=== PATIENT | male | born 1935 | race Caucasian/White ===

== ENCOUNTER 2016-11-16 10:03 | Inpatient (IN) | payer MEDICARE, OTHER ==
[~2016-11-16] VITALS: Ht 170.2 cm; Wt 65.3 kg
[2016-11-16] VITALS (10 sets, daily range): BP systolic 106–163; BP diastolic 56–91; PULSE 104–150; RESP 18–41; TEMP 99.1–99.9; O2SAT 90–98
[~2016-11-16 10:03] MED LIST: ADVA250A INH; ASPI325T10 PO; CALTTAB5 PO; CEFU1TAB43 PO; DUONSOL2 NEB; FORT200S; LIPI40TA PO; MAGN400T PO; PRED1 PO; PRIL20TA2 PO; RAMI5CAP7 PO; SPIRCAP INH; TAMS0.4C67 PO; TOPR25TA2 PO; Z.0.OXYGEN INH
--- NOTE | 2016-11-16 10:13 | PD ---
HPI Chief Complaint: shortness of breath Time Seen by Provider: 10:04 Travel History International Travel<30 days: No Contact w/Intl Traveler<30days: No Traveled to known affect area: No History of Present Illness HPI 81-year-old male complains of shortness of breath. Patient has history of COPD. Patient on home O2 3 L make an cannula. Patient states that he has been taking medication for fungal infection of the lung recently. Patient started having increased shortness of breath since this morning. EMS was called. Patient was given albuterol treatment times one and Solu-Medrol [address] IV [address] the [address] to the ED. Past medical history including abdominal aortic aneurysm repair, atrial fibrillation, anxiety, CAD, dyslipidemia, hypertension, nephrolithiasis. [facility] Past Medical History AAA: Yes (REPAIRED 11/08/2006) Asthma: Yes Atrial Fibrillation: Yes Autoimmune Disease: No Blood Disorders: No Anxiety: No Depression: No Heart Rhythm Problems: No Cancer: No Cardiovascular Problems: No High Cholesterol: Yes (TAKES LIPITOR) Chemotherapy: No Chest Pain: No Congestive Heart Failure: No COPD: Yes Diabetes: No Diminished Hearing: No Endocrine: Yes Gastrointestinal Disorders: Yes GERD: No Genitourinary: No Hepatitis: No Hiatal Hernia: No Hypertension: Yes Immune Disorder: No Implanted Vascular Access Dvce: Yes Kidney Stones: Yes (1979) Musculoskeletal: No Neurologic: No Psychiatric: No Reproductive: No Respiratory: Yes Myocardial Infarction: No Radiation Therapy: No Renal Failure: No Sleep Apnea: No Thyroid Disease: No Ulcer: No Past Surgical History Abdominal Surgery: Yes (AAA) AICD: No Appendectomy: No Arteriovenous Shunt: No Body Medical Devices: AORTIC STENT FOR ANEURYSM Cardiac Surgery: Yes (AAA STENT 2006) Cholecystectomy: No Ear Surgery: No Endocrine Surgery: Yes (THYROGLOSYL REMOVED) Eye Surgery: Yes Genitourinary Surgery: No Gynecologic Surgery: No Insulin Pump: No Joint Replacement: No Oral Surgery: Yes (TEETH REMOVED) Pacemaker: No Thoracic Surgery: No Other Surgery: Yes (RIGHT VITRECTOMY 1997) Social History Alcohol Use: Yes (WINE OCCASIONALLY) Tobacco Use: No Substance Use: No Allergies-Medications (Allergen,Severity, Reaction): Coded Allergies: Avelox (Verified Allergy, Severe, 08/25/14) Cipro (Verified Allergy, Severe, 08/25/14) Latex (Verified Allergy, Severe, 08/25/14) Levaquin (Verified Allergy, Severe, 08/25/14) Lortab (Verified Allergy, Severe, Hallucinations, 11/16/16) Xanax (Verified Allergy, Severe, Hallucinations, 11/16/16) *MDRO Multi-Drug Resistant Organism (Verified Allergy, Unknown, 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 Reported Meds & Prescriptions Reported Meds & Active Scripts Active Ceftin 500 Mg Tab (Cefuroxime Axetil) 500 Mg Tab 500 Mg PO Q12 Reported Oxygen (O2) (Miscellaneous Medication) Inha 3 L INH Deltasone (Prednisone) 1 Mg Tab 3 Mg PO DAILY Advair Diskus 250/50 (Salmeterol Xinafoate/Fluticasone) 250 Mcg/50 Mcg Inhp 1 Puff INH BID Aspirin Ec 325 mg (Aspirin) 325 Mg Tab 325 Mg PO DAILY Flomax (Tamsulosin HCl) 0.4 Mg Cap 0.4 Mg PO DAILY Fortical (Calcitonin [place]) 200 Mg/Act Spr 200 Mg NA DAILY Resp: Albuterol 2.5 Mg/Ipratropium 0.5 Mg (Albuterol/Ipratropium) 1 Amp Nebu 1 Amp NEB QIDPRN Altace (Ramipril) 5 Mg Cap 5 Mg PO DAILY Caltrate 600 (Calcium Carbonate) Tab 1 Tab PO Spiriva Handihaler (Tiotropium [place]) 18 Mcg Cap 1 Dose INH DAILY DO NOT SWALLOW CAPSULES Mag-Ox 400 (Magnesium Oxide) 400 Mg Tab 400 Mg PO QID Prilosec Otc (Omeprazole Magnesium) 20 Mg Tab 20 Mg PO DAILY Lipitor (Atorvastatin Calcium) 40 Mg Tab 40 Mg PO DAILY Toprol Xl (Metoprolol Succinate) 25 Mg Tabcr 25 Mg PO D Review of Systems General / Constitutional: No: Fever Eyes: No: Visual changes HENT: No: Headaches Cardiovascular: No: Chest Pain or Discomfort Respiratory: Positive: Shortness of Breath Gastrointestinal: No: Abdominal Pain Genitourinary: No: Dysuria Musculoskeletal: No: Pain Skin: No Rash Neurologic: No: Weakness Psychiatric: No: Depression Endocrine: No: Polydipsia Hematologic/Lymphatic: No: Easy Bruising Physical Exam Narrative GENERAL: Well-nourished, well-developed patient. SKIN: Warm and dry. HEAD: Normocephalic. EYES: No scleral icterus. No injection or drainage. NECK: Supple, trachea midline. No JVD or lymphadenopathy. CARDIOVASCULAR: Tachycardia rate and rhythm without murmurs, gallops, or rubs. RESPIRATORY: Patient had decreased breath sounds bilaterally with expiratory wheezes. Few rhonchi at the bases. GASTROINTESTINAL: Abdomen soft, non-tender, nondistended. MUSCULOSKELETAL: No cyanosis, or edema. BACK: Nontender without obvious deformity. No CVA tenderness. Neurologic exam normal. Data Data Last Documented VS Vital Signs Date Time Temp Pulse Resp B/P Pulse Ox O2 Delivery O2 Flow Rate FiO2 11/16/16 10:46 98 50 11/16/16 10:20 BiPAP 11/16/16 10:13 91 30 11/16/16 10:05 99.9 163/91 Orders Complete Blood Count With Diff (11/16/16 10:04) Comprehensive Metabolic Panel (11/16/16 10:04) B-Type Natriuretic Peptide (11/16/16 10:04) Act Partial Throm Time (Ptt) (11/16/16 10:04) Prothrombin Time / Inr (Pt) (11/16/16 10:04) Ckmb (Isoenzyme) Profile (11/16/16 10:04) Troponin I (11/16/16 10:04) Arterial Blood Gas (Abg) (11/16/16 10:04) Urinalysis - C+S If Indicated (11/16/16 10:04) Influenzae A/B Antigen (11/16/16 10:04) Blood Culture (11/16/16 10:04) Iv Access Insert/Monitor (11/16/16 10:04) Electrocardiogram (11/16/16 10:04) Ecg Monitoring (11/16/16 10:04) Oximetry (11/16/16 10:04) Chest, Single Ap (11/16/16 10:04) Albuterol-Ipratropium Neb (Duoneb Neb) (11/16/16 10:15) Lactic Acid (11/16/16 10:04) Labs Laboratory Tests Test 11/16/16 10:25 White Blood Count 13.7 TH/MM3 Red Blood Count 4.29 MIL/MM3 Hemoglobin 11.8 GM/DL Hematocrit 36.3 % Mean Corpuscular Volume 84.6 FL Mean Corpuscular Hemoglobin 27.4 PG Mean Corpuscular Hemoglobin 32.4 % Concent Red Cell Distribution Width 16.3 % Platelet Count 231 TH/MM3 Mean Platelet Volume 8.0 FL Neutrophils (%) (Auto) 82.5 % Lymphocytes (%) (Auto) 2.8 % Monocytes (%) (Auto) 13.0 % Eosinophils (%) (Auto) 1.2 % Basophils (%) (Auto) 0.5 % Neutrophils # (Auto) 11.3 TH/MM3 Lymphocytes # (Auto) 0.4 TH/MM3 Monocytes # (Auto) 1.8 TH/MM3 Eosinophils # (Auto) 0.2 TH/MM3 Basophils # (Auto) 0.1 TH/MM3 CBC Comment DIFF FINAL Differential Comment Prothrombin Time 11.1 SEC Prothromb Time International 1.0 RATIO Ratio Activated Partial 23.0 SEC Thromboplast Time Sodium Level 137 MEQ/L Potassium Level 4.2 MEQ/L Chloride Level 101 MEQ/L Carbon Dioxide Level 27.9 MEQ/L Anion Gap 8 MEQ/L Blood Urea Nitrogen 19 MG/DL Creatinine 1.05 MG/DL Estimat Glomerular Filtration 68 ML/MIN Rate Random Glucose 172 MG/DL Lactic Acid Level 2.2 mmol/L Calcium Level 8.5 MG/DL Total Bilirubin 0.4 MG/DL Aspartate Amino Transf 23 U/L (AST/SGOT) Alanine Aminotransferase 22 U/L (ALT/SGPT) Alkaline Phosphatase 55 U/L Total Creatine Kinase 99 U/L Troponin I 0.02 NG/ML B-Type Natriuretic Peptide 33 PG/ML Total Protein 6.9 GM/DL Albumin 3.6 GM/DL MDM Medical Decision Making Medical Screen Exam Complete: Yes Emergency Medical Condition: Yes Medical Record Reviewed: Yes Interpretation(s) Last Impressions Chest X-Ray 11/16/16 1004 Signed Impressions: Service Date/Time: Wednesday, November 16, 2016 10:32 - CONCLUSION: 1. Stable chest x-ray with background lung changes suggestive of obstructive airways disease. 2. Stable atelectasis versus consolidation in the left lower lobe. Ketan Horta MD 11:47 AM. CBC WBC 13.7. Hemoglobin 11.8 hematocrit 36.3. 82 neutrophil. CMP within normal limit. BUN 19. Glucose 172. Lactic acid 2.2. BNP 33. Differential Diagnosis Differential diagnosis including acute exacerbation COPD, bronchitis, pneumonia , PE, pneumothorax. Narrative Course 81-year-old male with shortness of breath. History of COPD. Patient's tachypneic, tachycardic, with decreased breath sounds bilaterally and wheezing. Albuterol Atrovent unit dose treatment 3. Patient was given Solu-Medrol IV by EMS. BiPAP applied. Diagnosis Primary Impression: COPD with acute exacerbation Additional Impression: Respiratory failure Qualified Code: J96.01 - Acute respiratory failure with hypoxia Francisco Rivera MD Nov 16, 2016 10:13
[2016-11-16] MEDS: RESP: ALBUTEROL 2.5 MG/IPRATROPIUM 0.5 MG NEB (SCH) INH ×2 (10:15→10:34)
[2016-11-16 10:43] LABS: AUTOMATED NEUTROPHIL # 11.3 TH/MM3 (1.8-7.7); BASOPHIL # 0.1 TH/MM3 (0-0.2); BASOPHIL % 0.5 % (0.0-2.0); EOSINOPHIL # 0.2 TH/MM3 (0-0.4); EOSINOPHIL % 1.2 % (0.0-4.0); HEMATOCRIT 36.3 % (39.0-51.0); HEMO FLAGS DIFF FINAL; LYMPH % 2.8 % (9.0-44.0); LYMPHOCYTE # 0.4 TH/MM3 (1.0-4.8); MEAN CELL VOLUME 84.6 FL (80.0-100.0); MEAN CORPUSCULAR HEMOGLOBIN 27.4 PG (27.0-34.0); MEAN CORPUSCULAR HGB CONC 32.4 % (32.0-36.0); NEUT % 82.5 % (16.0-70.0); PLATELET COUNT 231 TH/MM3 (150-450); RED BLOOD COUNT 4.29 MIL/MM3 (4.50-5.90); RED CELL DISTRIBUTION WIDTH 16.3 % (11.6-17.2); WHITE BLOOD COUNT 13.7 TH/MM3 (4.0-11.0)
[2016-11-16 10:52] LABS: PROTHROMBIN TIME - PATIENT 11.1 SEC (9.8-11.6)
[2016-11-16 10:58] LABS: ALT (GPT) 22 U/L (12-78); ANION GAP 8 MEQ/L (5-15); AST (GOT) 23 U/L (15-37); BICARBONATE 27.9 MEQ/L (21.0-32.0); BLOOD UREA NITROGEN 19 MG/DL (7-18); CHLORIDE 101 MEQ/L (98-107); GLOMERULAR FILTRATION RATE 68 ML/MIN (>89); POTASSIUM 4.2 MEQ/L (3.5-5.1); SODIUM (NA) 137 MEQ/L (136-145)
[2016-11-16 11:02] LABS: ALKALINE PHOSPHATASE 55 U/L (45-117); TOTAL BILIRUBIN ADULT 0.4 MG/DL (0.2-1.0)
[2016-11-16 11:05] LABS: CREATINE KINASE 99 U/L (39-308)
--- NOTE | 2016-11-16 11:13 | RADRPT ---
EXAM DATE/TIME: 11/16/2016 10:32 [place] COMPARISON: CT PULMONARY ANGIOGRAM, August 25, 2014, 22:04. CHEST SINGLE AP, August 25, 2014, 18:23. INDICATIONS : Very short of breath MEDICAL HISTORY : Hypertension. Chronic obstructive pulmonary disease. SURGICAL HISTORY : None. ENCOUNTER: Initial ACUITY: 1 day PAIN SCORE: Non-responsive. LOCATION: Bilateral chest FINDINGS: Portable AP views of the chest demonstrate normal-sized cardiac silhouette with calcification of the aorta. There is a stable calcified granuloma in the left midlung zone measuring approximately 16 mm. There is mild consolidation in the retrocardiac region. No pneumothorax is visualized. Lungs remain h yperinflated. CONCLUSION: 1. Stable chest x-ray with background lung changes suggestive of obstructive airways disease. 2. Stable atelectasis versus consolidation in the left lower lobe. Ketan Horta MD on November 16, 2016 at 11:04 Board Certified Radiologist. This report was verified electronically.
[2016-11-16] MEDS ORDERED: CEFEPIME INJ 1,000 MG in SODIUM CHLORIDE 0.9% INJ 100 ML IV ONE (12:00)
[2016-11-16] MEDS ORDERED: AZITHROMYCIN INJ 500 MG in SODIUM CHLOR 0.9% 250 ML INJ 250 ML IV ONE (12:00)
[2016-11-16] MEDS ORDERED: SODIUM CHLORIDE 0.9% FLUSH 5 ML FLUSH IVF PRN (12:15)
[2016-11-16] MEDS ORDERED: ONDANSETRON HCL 4 MG/2 ML VIAL IV PRN (12:15)
--- NOTE | 2016-11-16 12:53 | HHI.HP ---
History of Present Illness Primary Care Physician Shun Vyas MD Admission Diagnosis acute exacerbation COPD. Hypoxemia. Diagnoses: (1) Respiratory failure (2) COPD with acute exacerbation (3) Hypomagnesemia History of Present Illness 81 y CM. BROUGHT IN WITH FOR SEVER SOB AND CHEUNG. PT RECENTLY ON HOME ABX. FOLLOWS WITH DR BAILON. I WAS CALLED BY DR BARRERA FOR ADMISSION. PT SEEN IN ER A POD WITH AND BROTHER. PLACED ON BIPAP, GIVEN IV ABX AND IV STEROIDS. PT SEVERELY TACHYPNEIC AND C/O COUGH AND SPUTUM. AUDIBLE BEDSIDE RONCHI. Sepsis Criteria SIRS Criteria (2 or more): Heart rate over 90, RR > 20 or PaCO2 < 32, WBC > 87502, < 4000 or > 10% bands Sepsis Criteria (SIRS+source): Infect source susp/known Severe Sepsis (+one): Lactate >2 Criteria Outcome: Meets severe sepsis criteria Review of Systems ROS Limitations: Clinical Condition, Altered Mental Status, Hearing Impaired, Poor Historian Past Family Social History Allergies: Coded Allergies: Avelox (Verified Allergy, Severe, 08/25/14) Cipro (Verified Allergy, Severe, 08/25/14) Latex (Verified Allergy, Severe, 08/25/14) Levaquin (Verified Allergy, Severe, 08/25/14) Lortab (Verified Allergy, Severe, Hallucinations, 11/16/16) Xanax (Verified Allergy, Severe, Hallucinations, 11/16/16) *MDRO Multi-Drug Resistant Organism (Verified Allergy, Unknown, 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 Past Medical History COPD HTN AAA Past Surgical History NC Reported Medications Current Medications Medications (Trade) Dose Ordered Sig/Mary Route Start Time Stop Time Status Last Admin (Zithromax Inj/ NS 250 ml Inj) 250 ml @ 250 mls/hr ONCE ONCE IV 11/16/16 12:00 11/16/16 12:59 (Zofran Inj) 4 mg Q6H PRN IV 11/16/16 12:15 (Tylenol) 650 mg Q4H PRN PO 11/16/16 12:15 (NS Flush) 2 ml BID IVF 11/16/16 21:00 (NS Flush) 2 ml UNSCH PRN IVF 11/16/16 12:15 Family History NC Social History NO E/T/D Physical Exam Vital Signs Vital Signs Date Time Temp Pulse Resp B/P Pulse Ox O2 Delivery O2 Flow Rate FiO2 11/16/16 10:46 98 50 11/16/16 10:20 96 BiPAP 50 11/16/16 10:13 91 30 95 BiPAP 50 11/16/16 10:05 99.9 150 18 163/91 90 Physical Exam GENERAL: chronically ill appearing, tachypneic SKIN: No rashes, ecchymoses or lesions. Cool and dry. HEAD: Atraumatic. Normocephalic. No temporal or scalp tenderness. EYES: Pupils equal round and reactive. Extraocular motions intact. No scleral icterus. No injection or drainage. ENT: Nose without bleeding, purulent drainage or septal hematoma. Throat without erythema, tonsillar hypertrophy or exudate. Uvula midline. Airway patent. NECK: Trachea midline. No JVD or lymphadenopathy. Supple, nontender, no meningeal signs. CARDIOVASCULAR: Regular rate and rhythm without murmurs, gallops, or rubs. RESPIRATORY: distant BS'S, harsh cough, b ronchi to apices GASTROINTESTINAL: Abdomen soft, non-tender, nondistended. No hepato-splenomegaly , or palpable masses. No guarding. MUSCULOSKELETAL: Extremities without clubbing, cyanosis, or edema. No joint tenderness, effusion, or edema noted. No calf tenderness. Negative Homans sign bilaterally. NEUROLOGICAL: Awake and alert. Cranial nerves II through XII intact. Motor and sensory grossly within normal limits. 2out of 5 muscle strength in all muscle groups. Normal speech. Laboratory Laboratory Tests Test 11/16/16 10:25 White Blood Count 13.7 Red Blood Count 4.29 Hemoglobin 11.8 Hematocrit 36.3 Mean Corpuscular Volume 84.6 Mean Corpuscular Hemoglobin 27.4 Mean Corpuscular Hemoglobin 32.4 Concent Red Cell Distribution Width 16.3 Platelet Count 231 Mean Platelet Volume 8.0 Neutrophils (%) (Auto) 82.5 Lymphocytes (%) (Auto) 2.8 Monocytes (%) (Auto) 13.0 Eosinophils (%) (Auto) 1.2 Basophils (%) (Auto) 0.5 Neutrophils # (Auto) 11.3 Lymphocytes # (Auto) 0.4 Monocytes # (Auto) 1.8 Eosinophils # (Auto) 0.2 Basophils # (Auto) 0.1 CBC Comment DIFF FINAL Differential Comment Prothrombin Time 11.1 Prothromb Time International 1.0 Ratio Activated Partial 23.0 Thromboplast Time Sodium Level 137 Potassium Level 4.2 Chloride Level 101 Carbon Dioxide Level 27.9 Anion Gap 8 Blood Urea Nitrogen 19 Creatinine 1.05 Estimat Glomerular Filtration 68 Rate Random Glucose 172 Lactic Acid Level 2.2 Calcium Level 8.5 Total Bilirubin 0.4 Aspartate Amino Transf 23 (AST/SGOT) Alanine Aminotransferase 22 (ALT/SGPT) Alkaline Phosphatase 55 Total Creatine Kinase 99 Troponin I 0.02 B-Type Natriuretic Peptide 33 Total Protein 6.9 Albumin 3.6 Date/Time Procedure Status Source Growth 11/16/16 10:50 Influenza Types A,B Antigen (ABBIE) [place] Batch Nasal Washing Pending 11/16/16 10:35 Aerobic Blood Culture Received Blood Peripheral Pending 11/16/16 10:35 Anaerobic Blood Culture Received Blood Peripheral Pending Result Diagram: 11/16/16 1025 11/16/16 1025 Assessment and Plan Assessment and Plan RESPIRATORY FAILURE SEPSIS HCAP COPD EXAC BRONCHIECTASIS HTN AFIB PLAN: IV ABX IV STEROIDS HEPARIN BID DUONEBS IV PROTONIX DR BAILON CONSULT ICU ADMIT FOR THE ABOVE DX AND PLAN. EXPECT 3 D INPT STAY. PT WOULD FROM THE ABOVE W/O INPT ADMIT. DC HOME EXPECTED. Problem Qualifiers (1) Respiratory failure: Qualified Code: J96.01 - Acute respiratory failure with hypoxia Estiven Toth MD Nov 16, 2016 12:53
[2016-11-16] MEDS ORDERED: NALOXONE HCL 0.4 MG/ML AMP IV PRN (13:00)
[2016-11-16] MEDS ORDERED: ONDANSETRON HCL 4 MG/2 ML VIAL IVP PRN (13:00)
[2016-11-16] MEDS ORDERED: MAGNESIUM HYDROXIDE SUSP 30 ML CUP PO PRN (13:00)
[2016-11-16] MEDS ORDERED: ACETAMINOPHEN 325 MG TAB PO PRN (13:00)
[2016-11-16] MEDS: DOCUSATE SODIUM 100 MG CAP PO SCH (13:00)
[2016-11-16] MEDS ORDERED: SODIUM CHLORIDE 0.9% FLUSH 5 ML FLUSH FLUSH PRN (13:00)
[2016-11-16] MEDS ORDERED: cloNIDine HCL 0.1 MG TAB PO PRN (13:00)
[2016-11-16 13:22] LABS: BLOOD GAS BASE EXCESS 1.7 mmol/L (-2-2); BLOOD GAS CARBOXYHEMOGLOBIN 1.7 % (0-4); BLOOD GAS HCO3 26 mmol/L (22-26); BLOOD GAS O2 HGB SATURATION 95 % (90-100); BLOOD GAS OXYGEN CONTENT 16.3 Vol % (12.0-20.0); BLOOD GAS PCO2 43 mmHg (38-42); BLOOD GAS PO2 127 mmHG (61-120); CRITICAL VALUE NO; DRAW SITE LT RADIAL; FIO2 50 %; NUMBER OF ARTERIAL PUNCTURES 1; OXYGEN DEVICE BiPAP; STAT YES; TEMP CORR TO 98.6; ULNAR PULSE Y; VENT SETTINGS IPAP 10 EPAP5
[2016-11-16] MEDS ORDERED: cefTRIAXone INJ 1,000 MG in SODIUM CHLORIDE 0.9% INJ 100 ML IV SCH (15:00)
[2016-11-16] MEDS: SODIUM CHLOR 0.9% 1000 ML INJ 1,000 ML IV SCH (15:56)
[2016-11-16] MEDS: HEPARIN SODIUM - SQ 10,000 UNITS/ML VIAL SQ SCH (15:57)
[2016-11-16] MEDS: PANTOPRAZOLE SODIUM 40 MG VIAL IV PUSH SCH (15:57)
[2016-11-16] MEDS: RESP: ALBUTEROL 2.5 MG/IPRATROPIUM 0.5 MG NEB (SCH) NEB ×2 (17:18→19:52)
[2016-11-16] MEDS: methylPREDNISolone SOD SUCC 125 MG/2 ML VIAL IV PUSH SCH (17:25)
[2016-11-16] MEDS ORDERED: CHLORHEXIDINE GLUCONATE 2 % 1 PACK (2 CLOTHS)(extra cloths) TOP PRN (18:00)
[2016-11-16 18:24] LABS: BLOOD, URINE NEG (NEG); COMMENT (UR) CULT NOT INDICATED; CULTURE IF INDICATED CULT NOT INDICATED; GLUCOSE,URINE NEG (NEG); KETONE, URINE NEG (NEG); MUCUS URINE FEW /lpf (OCC); NITRITE,URINE NEG (NEG); PH, URINE 5.5 (5.0-8.5); URINE COLOR YELLOW (YELLW/STRAW)
[2016-11-16] MEDS: SODIUM CHLORIDE 0.9% FLUSH 5 ML FLUSH FLUSH SCH (19:39)
[2016-11-16] MEDS ORDERED: SODIUM CHLORIDE 0.9% FLUSH 5 ML FLUSH IVF SCH (21:00)
[2016-11-17] VITALS (15 sets, daily range): BP systolic 110–127; BP diastolic 56–70; PULSE 85–114; RESP 14–33; TEMP 98–98.9; O2SAT 93–99
[2016-11-17] MEDS: DOCUSATE SODIUM 100 MG CAP PO SCH ×2 (00:46→12:41)
[2016-11-17] MEDS: HEPARIN SODIUM - SQ 10,000 UNITS/ML VIAL SQ SCH ×2 (00:46→12:43)
[2016-11-17] MEDS: methylPREDNISolone SOD SUCC 125 MG/2 ML VIAL IV PUSH SCH ×4 (00:46→17:12)
[2016-11-17] MEDS: CHLORHEXIDINE GLUCONATE 2 % 1 PACK (2 CLOTHS)(taper/protocol) TOP SCH (04:00)
[2016-11-17 06:14] LABS: AUTOMATED NEUTROPHIL # 13.2 TH/MM3 (1.8-7.7); HEMATOCRIT 32.6 % (39.0-51.0); HEMO FLAGS DIFF FINAL; LYMPH % 1.6 % (9.0-44.0); LYMPHOCYTE # 0.2 TH/MM3 (1.0-4.8); MEAN CORPUSCULAR HEMOGLOBIN 27.6 PG (27.0-34.0); MEAN CORPUSCULAR HGB CONC 32.9 % (32.0-36.0); MONO % 2.9 % (0.0-8.0); NEUT % 95.5 % (16.0-70.0); PLATELET COUNT 194 TH/MM3 (150-450); RED BLOOD COUNT 3.88 MIL/MM3 (4.50-5.90); RED CELL DISTRIBUTION WIDTH 16.3 % (11.6-17.2); WHITE BLOOD COUNT 13.8 TH/MM3 (4.0-11.0)
[2016-11-17 06:44] LABS: BICARBONATE 24.8 MEQ/L (21.0-32.0); POTASSIUM 4.1 MEQ/L (3.5-5.1)
[2016-11-17] MEDS: SODIUM CHLORIDE 0.9% FLUSH 5 ML FLUSH FLUSH SCH ×2 (09:00→20:06)
[2016-11-17] MEDS ORDERED: OMEPRAZOLE MAGNESIUM 20 MG PO SCH (09:00)
[2016-11-17] MEDS: RAMIPRIL 5 MG CAP PO SCH (09:00)
[2016-11-17] MEDS: TAMSULOSIN HCL 0.4 MG CAP PO SCH (09:00)
[2016-11-17] MEDS: METOPROLOL SUCCINATE 25 MG EXTENDED RELEASE TAB PO SCH (09:00)
[2016-11-17] MEDS: RESP: ALBUTEROL 2.5 MG/IPRATROPIUM 0.5 MG NEB (SCH) NEB ×4 (10:31→19:28)
[2016-11-17] MEDS ORDERED: Vancomycin Consult Pharmacy 1 EA OTHER SCH (11:00)
[2016-11-17] MEDS ORDERED: PIPERACIL-TAZO 4.5 GM PREMIX 100 ML IV SCH (11:00)
[2016-11-17] MEDS ORDERED: VANCOMYCIN INJ 1,000 MG in SODIUM CHLOR 0.9% 250 ML INJ 250 ML IV SCH (11:00)
[2016-11-17] MEDS ORDERED: CEFEPIME INJ 1,000 MG in SODIUM CHLORIDE 0.9% INJ 100 ML IV SCH (11:15)
--- NOTE | 2016-11-17 11:22 | HHI.PR ---
Subjective Remarks fu sepsis, copd exacerbation Patient denies cp - states sob still somewhat labored off bipap no fevers still coughing seems tachypneic Objective Vitals Vital Signs Date Time Temp Pulse Resp B/P Pulse Ox O2 Delivery O2 Flow Rate FiO2 11/17/16 10:31 93 Nasal Cannula 4.00 11/17/16 10:00 101 11/17/16 08:00 103 11/17/16 08:00 98.8 103 14 127/66 95 11/17/16 06:00 106 11/17/16 04:00 98.1 85 26 120/56 96 11/17/16 04:00 85 11/17/16 02:00 93 11/17/16 00:00 98.5 92 28 117/66 99 11/17/16 00:00 92 11/16/16 22:00 104 11/16/16 20:00 98 BiPAP 50 11/16/16 20:00 99.1 109 36 137/64 98 11/16/16 20:00 109 11/16/16 19:58 98 50 11/16/16 18:00 123 11/16/16 17:18 95 Nasal Cannula 3.00 11/16/16 16:00 113 11/16/16 16:00 99.6 113 41 106/56 95 11/16/16 14:00 122 18 114/61 95 Nasal Cannula 6 I/O 11/16/16 11/16/16 11/16/16 11/17/16 11/17/16 11/17/16 07:00 15:00 23:00 07:00 15:00 23:00 Intake Total 617 ml 328 ml Output Total 250 ml 250 ml Balance 367 ml 78 ml Intake Oral 120 ml 120 ml IV Total 497 ml 208 ml Output Urine Total 250 ml 250 ml # Voids 0 # Bowel Movements 0 0 Result Diagram: 11/17/16 0555 11/17/16 0555 Imaging Last Impressions Chest X-Ray 11/16/16 1004 Signed Impressions: Service Date/Time: Wednesday, November 16, 2016 10:32 - CONCLUSION: 1. Stable chest x-ray with background lung changes suggestive of obstructive airways disease. 2. Stable atelectasis versus consolidation in the left lower lobe. Ketan Horta MD Objective Remarks GENERAL: chronically ill appearing, tachypneic SKIN: No rashes, ecchymoses or lesions. Cool and dry. HEAD: Atraumatic. Normocephalic. No temporal or scalp tenderness. EYES: Pupils equal round and reactive. Extraocular motions intact. No scleral icterus. No injection or drainage. ENT: Nose without bleeding, purulent drainage or septal hematoma. Throat without erythema, tonsillar hypertrophy or exudate. Uvula midline. Airway patent. NECK: Trachea midline. No JVD or lymphadenopathy. Supple, nontender, no meningeal signs. CARDIOVASCULAR: Regular rate and rhythm without murmurs, gallops, or rubs. RESPIRATORY: distant BS'S, harsh cough, b ronchi to apices GASTROINTESTINAL: Abdomen soft, non-tender, nondistended. No hepato-splenomegaly , or palpable masses. No guarding. MUSCULOSKELETAL: Extremities without clubbing, cyanosis, or edema. No joint tenderness, effusion, or edema noted. No calf tenderness. Negative Homans sign bilaterally. NEUROLOGICAL: Awake and alert. Cranial nerves II through XII intact. Motor and sensory grossly within normal limits. 2out of 5 muscle strength in all muscle groups. Normal speech. Medications and IVs Current Medications Medications (Trade) Dose Ordered Sig/Mary Route Start Time Stop Time Status Last Admin (Tylenol) 650 mg Q4H PRN PO 11/16/16 12:15 (Toprol Xl) 25 mg DAILY PO 11/17/16 09:00 11/17/16 09:00 (Altace) 5 mg DAILY PO 11/17/16 09:00 11/17/16 09:00 Tamsulosin HCl 0.4 mg 0.4 mg DAILY PO 11/17/16 09:00 11/17/16 09:00 (NS 1000 ml Inj) 1,000 ml @ 30 mls/hr Q24H IV 11/16/16 12:56 11/16/16 15:56 (NS Flush) 2 ml UNSCH PRN FLUSH 11/16/16 13:00 (NS Flush) 2 ml BID FLUSH 11/16/16 21:00 11/17/16 09:00 (Zofran Inj) 4 mg Q6H PRN IVP 11/16/16 13:00 (Colace) 100 mg Q12H PO 11/16/16 13:00 11/17/16 00:46 (Milk Of Magnesia Liq) 30 ml Q12H PRN PO 11/16/16 13:00 (Heparin Inj) 5,000 units Q12H SQ 11/16/16 14:00 11/17/16 00:46 Naloxone HCl 0.4 mg 0.4 mg UNSCH PRN IV 11/16/16 13:00 (Zithromax Inj/ NS 250 ml Inj) 250 ml @ 250 mls/hr Q24H IV 11/17/16 14:00 (Catapres) 0.1 mg Q6H PRN PO 11/16/16 13:00 Methylprednisolone Sodium Succinate 120 mg 120 mg Q6HR IV PUSH 11/16/16 18:00 11/17/16 05:22 (Rocephin Inj/NS Inj) 100 ml @ 200 mls/hr Q24H IV 11/16/16 15:00 11/16/16 15:58 (Protonix Inj) 40 mg Q24H IV PUSH 11/16/16 14:00 11/16/16 15:57 Miscellaneous Information Patient in critical care unit? Ass... [id number] XX 11/16/16 18:00 11/16/16 18:00 (Chlorhexidine 2% Cloth) 3 pack DAILY@04 TOP 11/17/16 04:00 11/21/16 04:01 11/17/16 04:00 (Chlorhexidine 2% Cloth) 3 pack UNSCH PRN TOP 11/16/16 18:00 11/21/16 17:53 Urinary Catheter: No Vascular Central Line Catheter: No A/P Problem List: (1) Sepsis ICD Code: A41.9 Status: Acute Plan: Due to COPD exacerbation and pneumonia. Patient admitted to the intensive care unit Blood cultures showing gram-positive cocci Sputum culture pending but sputum Gram stain shows gram-positive cocci in pairs. Continue IV Rocephin and Azithromycin Ordering repeat blood cultures Sepsis at present, patient still with leukocytosis, and sinus tachycardia. (2) Acute and chronic respiratory failure ICD Code: J96.20 Status: Acute Plan: Due to COPD exacerbation pneumonia. Chest x-ray on admission showed a stable chest x-ray with background changes suggestive of obstructive airways. Consolidation in the left lower lobe. Continue supplemental oxygen to keep oxygen saturation more than 92%. (3) COPD with acute exacerbation ICD Code: J44.1 Status: Acute Plan: Patient admitted and started on IV salmeterol 120 mg IV every 6 hours. We'll decrease dose to 60 mg IV every 6 hours. Pulmonary consulted - Dr Hernandez (4) PNA (pneumonia) ICD Code: J18.9 Status: Acute Plan: Likely community acquired pna - last hospitalization in 2013 Failed outpatient antibiotics Continue IV Rocephin and Azithromycin Blood cultures growing gram-positive cocci Influenza ---> pending check strep pneumonia antigen and urine legionella antigen Follow-up ID and sensitivities. (5) Elevated lactic acid level ICD Code: R79.89 Status: Acute Plan: Secondary to sepsis, secondary to COPD exacerbation and pneumonia I will increase IV normal saline rate to 100 ml/hr (6) Leukocytosis ICD Code: D72.829 Status: Acute Plan: Due to sepsis, secondary to COPD exacerbation and pneumonia. Continue to monitor CBC, leukocytosis till elevated at 13.8 K (7) HTN (hypertension) ICD Code: I10 Status: Chronic Plan: Pressure seems to be stable. Continue home antihypertensive medications which include metoprolol succinate 25 mg by mouth daily. (8) BPH (benign prostatic hyperplasia) ICD Code: N40.0 Status: Chronic Plan: Continue Flomax. seems stable Assessment and Plan GI prophylaxis: Continue PPI DVT prophylaxis: SCD's, Continue heparin SQ Discharge Planning Continue to monitor in the ICU. Problem Qualifiers (1) HTN (hypertension): Qualified Code: I10 - Essential hypertension (2) BPH (benign prostatic hyperplasia): Qualified Code: N40.0 - Benign prostatic hyperplasia without lower urinary tract symptoms, unspecified morphology Raman Banks MD Nov 17, 2016 11:22
[2016-11-17] MEDS: SODIUM CHLOR 0.9% 1000 ML INJ 1,000 ML IV SCH (12:41)
[2016-11-17] MEDS: AZITHROMYCIN INJ 500 MG in SODIUM CHLOR 0.9% 250 ML INJ 250 ML IV SCH (12:42)
[2016-11-17] MEDS: PANTOPRAZOLE SODIUM 40 MG VIAL IV PUSH SCH (12:42)
[2016-11-17 17:32] LABS: LACTIC ACID GHOST NOT REPORTABLE
--- NOTE | 2016-11-17 22:42 | EKG ---
Date Performed: 11/16/2016 Time Performed: 10:26:58 PTAGE: 81 years EKG: SINUS TACHYCARDIA INDETERMINATE AXIS ABNORMAL ECG PREVIOUS TRACING : 08/03/2016 14.52 Compared to the previous tracing, rate faster DOCTOR: Ada Sosa Interpretating Date/Time 11/17/2016 22:40:52
[2016-11-18] VITALS (17 sets, daily range): BP systolic 113–146; BP diastolic 60–77; PULSE 73–109; RESP 18–31; TEMP 98.1–98.8; O2SAT 93–100
[2016-11-18] MEDS: SODIUM CHLOR 0.9% 1000 ML INJ 1,000 ML IV SCH ×2 (00:03→08:56)
[2016-11-18] MEDS: methylPREDNISolone SOD SUCC 125 MG/2 ML VIAL IV PUSH SCH ×2 (00:03→06:33)
[2016-11-18] MEDS: DOCUSATE SODIUM 100 MG CAP PO SCH ×2 (00:03→13:18)
[2016-11-18] MEDS: HEPARIN SODIUM - SQ 10,000 UNITS/ML VIAL SQ SCH ×2 (02:36→13:18)
[2016-11-18] MEDS: CHLORHEXIDINE GLUCONATE 2 % 1 PACK (2 CLOTHS)(taper/protocol) TOP SCH (04:00)
[2016-11-18] MEDS: RESP: ALBUTEROL 2.5 MG/IPRATROPIUM 0.5 MG NEB (SCH) NEB ×4 (07:40→19:26)
[2016-11-18 07:59] LABS: AUTOMATED NEUTROPHIL # 16.5 TH/MM3 (1.8-7.7); BASOPHIL % 0.2 % (0.0-2.0); HEMATOCRIT 32.6 % (39.0-51.0); HEMO FLAGS DIFF FINAL; LYMPH % 1.1 % (9.0-44.0); LYMPHOCYTE # 0.2 TH/MM3 (1.0-4.8); MEAN CELL VOLUME 84.7 FL (80.0-100.0); MEAN CORPUSCULAR HGB CONC 31.9 % (32.0-36.0); MONO % 3.8 % (0.0-8.0); NEUT % 94.9 % (16.0-70.0); PLATELET COUNT 188 TH/MM3 (150-450); RED BLOOD COUNT 3.86 MIL/MM3 (4.50-5.90); RED CELL DISTRIBUTION WIDTH 16.2 % (11.6-17.2); WHITE BLOOD COUNT 17.4 TH/MM3 (4.0-11.0)
[2016-11-18] MEDS: METOPROLOL SUCCINATE 25 MG EXTENDED RELEASE TAB PO SCH (08:55)
[2016-11-18] MEDS: TAMSULOSIN HCL 0.4 MG CAP PO SCH (08:55)
[2016-11-18] MEDS: SODIUM CHLORIDE 0.9% FLUSH 5 ML FLUSH FLUSH SCH (08:56)
[2016-11-18] MEDS: RAMIPRIL 5 MG CAP PO SCH (08:56)
[2016-11-18 09:12] LABS: BICARBONATE 25.9 MEQ/L (21.0-32.0); CALCIUM-PROTEIN CORRECTED 8.1 MG/DL (8.5-10.1); MAGNESIUM 2.1 MG/DL (1.5-2.5); POTASSIUM 4.2 MEQ/L (3.5-5.1); TOTAL BILIRUBIN ADULT 0.3 MG/DL (0.2-1.0)
[2016-11-18] MEDS: PANTOPRAZOLE SODIUM 40 MG VIAL IV PUSH SCH (13:18)
[2016-11-18] MEDS: methylPREDNISolone SOD SUCC 40 MG/1 ML VIAL IV SCH (13:18)
[2016-11-18] MEDS: CEFEPIME INJ 1,000 MG in SODIUM CHLORIDE 0.9% INJ 100 ML IV SCH (13:18)
[2016-11-18] MEDS: AZITHROMYCIN INJ 500 MG in SODIUM CHLOR 0.9% 250 ML INJ 250 ML IV SCH (14:19)
--- NOTE | 2016-11-18 15:09 | HHI.FPPN ---
Subjective Remarks very SOB C/O CHEUNG BETTER SOME ON NC D/W RN Objective Vitals Vital Signs Date Time Temp Pulse Resp B/P Pulse Ox O2 Delivery O2 Flow Rate FiO2 11/18/16 12:00 101 11/18/16 12:00 98.6 101 29 131/61 95 11/18/16 10:00 85 11/18/16 08:00 98.4 104 31 142/73 95 11/18/16 08:00 104 11/18/16 07:40 96 Nasal Cannula 4.00 11/18/16 06:00 101 11/18/16 04:37 100 40 11/18/16 04:00 104 11/18/16 04:00 98.8 104 23 146/77 98 11/18/16 02:00 109 11/18/16 01:22 97 40 11/18/16 00:00 73 11/18/16 00:00 98.2 73 21 113/60 99 11/17/16 22:00 98 11/17/16 20:00 114 11/17/16 20:00 98.9 110 19 110/70 98 11/17/16 19:52 98 40 11/17/16 19:28 97 Nasal Cannula 4.00 11/17/16 18:00 101 11/17/16 16:00 91 11/17/16 16:00 98.8 91 21 118/62 96 I/O 11/17/16 11/17/16 11/17/16 11/18/16 11/18/16 11/18/16 07:00 15:00 23:00 07:00 15:00 23:00 Intake Total 328 ml 645 ml 756 ml 713 ml 1091 ml Output Total 250 ml 200 ml 200 ml 450 ml 500 ml Balance 78 ml 445 ml 556 ml 263 ml 591 ml Intake Oral 120 ml 100 ml 240 ml IV Total 208 ml 545 ml 756 ml 713 ml 851 ml Output Urine Total 250 ml 200 ml 200 ml 450 ml 500 ml # Bowel Movements 0 1 0 Result Diagram: 11/18/16 0659 11/18/16 0652 Objective Remarks GENERAL: SKIN: Warm and dry. HEAD: Atraumatic. Normocephalic. EYES: Pupils equal and round. No scleral icterus. No injection or drainage. ENT: No nasal bleeding or discharge. Mucous membranes pink and moist. NECK: Trachea midline. No JVD. CARDIOVASCULAR: Regular rate and rhythm. RESPIRATORY: B R/R, TACHYPNEIC, HARSH COUGH GASTROINTESTINAL: Abdomen soft, non-tender, nondistended. Hepatic and splenic margins not palpable. MUSCULOSKELETAL: Extremities without clubbing, cyanosis, or edema. No obvious deformities. NEUROLOGICAL: Awake and alert. No obvious cranial nerve deficits. Motor grossly within normal limits. 2 out of 5 muscle strength in the arms and legs. Normal speech. PSYCHIATRIC: Appropriate mood and affect; insight and judgment normal. Medications and IVs Current Medications Medications (Trade) Dose Ordered Sig/Mary Route Start Time Stop Time Status Last Admin (Tylenol) 650 mg Q4H PRN PO 11/16/16 12:15 (Toprol Xl) 25 mg DAILY PO 11/17/16 09:00 11/18/16 08:55 (Altace) 5 mg DAILY PO 11/17/16 09:00 11/18/16 08:56 Tamsulosin HCl 0.4 mg 0.4 mg DAILY PO 11/17/16 09:00 11/18/16 08:55 (NS 1000 ml Inj) 1,000 ml @ 42 mls/hr [id number] IV 11/16/16 12:56 11/18/16 08:56 (NS Flush) 2 ml UNSCH PRN FLUSH 11/16/16 13:00 (NS Flush) 2 ml BID FLUSH 11/16/16 21:00 11/18/16 08:56 (Zofran Inj) 4 mg Q6H PRN IVP 11/16/16 13:00 (Colace) 100 mg Q12H PO 11/16/16 13:00 11/18/16 13:18 (Milk Of Magnesia Liq) 30 ml Q12H PRN PO 11/16/16 13:00 (Heparin Inj) 5,000 units Q12H SQ 11/16/16 14:00 11/18/16 13:18 Naloxone HCl 0.4 mg 0.4 mg UNSCH PRN IV 11/16/16 13:00 (Zithromax Inj/ NS 250 ml Inj) 250 ml @ 250 mls/hr Q24H IV 11/17/16 14:00 11/18/16 14:19 (Catapres) 0.1 mg Q6H PRN PO 11/16/16 13:00 (Protonix Inj) 40 mg Q24H IV PUSH 11/16/16 14:00 11/18/16 13:18 Miscellaneous Information Patient in critical care unit? Ass... Q361D XX 11/16/16 18:00 11/16/16 18:00 (Chlorhexidine 2% Cloth) 3 pack DAILY@04 TOP 11/17/16 04:00 11/21/16 04:01 11/18/16 04:00 (Chlorhexidine 2% Cloth) 3 pack UNSCH PRN TOP 11/16/16 18:00 11/21/16 17:53 Lactobacillus Acidophilus 1 tab 1 tab Q12HR PO 11/18/16 21:00 (Maxipime Inj/NS Inj) 100 ml @ 200 mls/hr Q12H IV 11/18/16 13:00 11/18/16 13:18 (SoluMEDROL INJ) 40 mg Q8HR IV 11/18/16 14:00 11/18/16 13:18 A/P Assessment and Plan (1) Sepsis ICD Code: A41.9 Status: Acute Plan: Due to COPD exacerbation and pneumonia. Patient admitted to the intensive care unit Blood cultures showing gram-positive cocci Sputum culture pending but sputum Gram stain shows gram-positive cocci in pairs. Continue IV Rocephin and Azithromycin P blood cultures Sepsis at present, patient still with leukocytosis, and sinus tachycardia. (2) Acute and chronic respiratory failure ICD Code: J96.20 Status: Acute Plan: Due to COPD exacerbation pneumonia. Chest x-ray on admission showed a stable chest x-ray with background changes suggestive of obstructive airways. Consolidation in the left lower lobe. Continue supplemental oxygen to keep oxygen saturation more than 92%. (3) COPD with acute exacerbation ICD Code: J44.1 Status: Acute Plan: Patient admitted and started on IV solumedrol 60 mg IV every 6 hours. Pulmonary consulted - Dr Hernandez (4) PNA (pneumonia) ICD Code: J18.9 Status: Acute Plan: Likely community acquired pna - last hospitalization in 2013 Failed outpatient antibiotics Continue IV Rocephin and Azithromycin Blood cultures growing gram-positive cocci Influenza ---> pending check strep pneumonia antigen and urine legionella antigen Follow-up ID and sensitivities. (5) Elevated lactic acid level ICD Code: R79.89 Status: Acute Plan: Secondary to sepsis, secondary to COPD exacerbation and pneumonia normal saline 100 ml/hr (6) Leukocytosis ICD Code: D72.829 Status: Acute Plan: Due to sepsis, secondary to COPD exacerbation and pneumonia. Continue to monitor CBC (7) HTN (hypertension) ICD Code: I10 Status: Chronic Plan: Pressure seems to be stable. Continue home antihypertensive medications which include metoprolol succinate 25 mg by mouth daily. (8) BPH (benign prostatic hyperplasia) ICD Code: N40.0 Status: Chronic Plan: Continue Flomax. seems stable Assessment and Plan GI prophylaxis: Continue PPI DVT prophylaxis: SCD's, Continue heparin SQ Discharge Planning Continue to monitor in the ICU. Estiven Toth MD Nov 18, 2016 15:09
[2016-11-19] VITALS (12 sets, daily range): BP systolic 114–150; BP diastolic 66–87; PULSE 65–103; RESP 14–41; TEMP 98–99.3; O2SAT 95–99
[2016-11-19] MEDS: methylPREDNISolone SOD SUCC 40 MG/1 ML VIAL IV SCH ×4 (04:55→20:44)
[2016-11-19] MEDS: LACTOBACILLUS ACIDOPHILUS TAB PO SCH ×3 (04:56→20:46)
[2016-11-19] MEDS: SODIUM CHLORIDE 0.9% FLUSH 5 ML FLUSH FLUSH SCH ×3 (04:56→20:45)
[2016-11-19] MEDS: DOCUSATE SODIUM 100 MG CAP PO SCH ×2 (04:57→12:49)
[2016-11-19] MEDS: HEPARIN SODIUM - SQ 10,000 UNITS/ML VIAL SQ SCH ×2 (04:57→14:00)
[2016-11-19] MEDS: CEFEPIME INJ 1,000 MG in SODIUM CHLORIDE 0.9% INJ 100 ML IV SCH ×2 (04:57→12:47)
[2016-11-19] MEDS: RESP: ALBUTEROL 2.5 MG/IPRATROPIUM 0.5 MG NEB (SCH) NEB ×4 (08:00→20:07)
[2016-11-19] MEDS: RAMIPRIL 5 MG CAP PO SCH (09:03)
[2016-11-19] MEDS: METOPROLOL SUCCINATE 25 MG EXTENDED RELEASE TAB PO SCH (09:03)
[2016-11-19] MEDS: TAMSULOSIN HCL 0.4 MG CAP PO SCH (09:03)
[2016-11-19 09:10] LABS: BASOPHIL % 0.1 % (0.0-2.0); HEMO FLAGS DIFF FINAL; LYMPH % 1.1 % (9.0-44.0); LYMPHOCYTE # 0.2 TH/MM3 (1.0-4.8); MEAN CELL VOLUME 84.6 FL (80.0-100.0); MONO % 3.7 % (0.0-8.0); NEUT % 95.1 % (16.0-70.0); PLATELET COUNT 180 TH/MM3 (150-450); RED BLOOD COUNT 3.78 MIL/MM3 (4.50-5.90); RED CELL DISTRIBUTION WIDTH 16.7 % (11.6-17.2); WHITE BLOOD COUNT 15.8 TH/MM3 (4.0-11.0)
[2016-11-19 09:27] LABS: BICARBONATE 26.4 MEQ/L (21.0-32.0); POTASSIUM 4.3 MEQ/L (3.5-5.1)
[2016-11-19 09:38] LABS: CALCIUM-PROTEIN CORRECTED 8.1 MG/DL (8.5-10.1)
--- NOTE | 2016-11-19 12:55 | HHI.FPPN ---
Subjective Remarks IN ICU TACHY EXCESS GREEN SPUTUM C/O SEVERE SOB, CHEUNG, AND WEAKNESS D/W RN Objective Vitals Vital Signs Date Time Temp Pulse Resp B/P Pulse Ox O2 Delivery O2 Flow Rate FiO2 11/19/16 12:00 99.3 82 41 114/66 95 11/19/16 12:00 82 11/19/16 10:00 80 11/19/16 08:17 96 Nasal Cannula 4.00 11/19/16 08:00 81 11/19/16 08:00 98.4 81 38 138/71 96 11/19/16 06:00 74 11/19/16 04:00 98.0 100 14 150/87 96 11/19/16 04:00 100 11/19/16 02:00 65 11/19/16 01:29 98 40 11/19/16 00:00 98.0 71 24 133/72 99 11/19/16 00:00 65 11/18/16 22:00 96 11/18/16 20:59 97 40 11/18/16 20:00 95 11/18/16 20:00 98.1 101 18 123/62 93 11/18/16 19:26 97 Nasal Cannula 4.00 11/18/16 18:00 91 11/18/16 16:00 96 11/18/16 16:00 98.4 96 28 126/60 93 11/18/16 14:00 85 I/O 11/18/16 11/18/16 11/18/16 11/19/16 11/19/16 11/19/16 07:00 15:00 23:00 07:00 15:00 23:00 Intake Total 713 ml 1091 ml 838 ml 322 ml 360 ml Output Total 450 ml 500 ml 300 ml 250 ml 276 ml Balance 263 ml 591 ml 538 ml 72 ml 84 ml Intake Oral 240 ml 250 ml 360 ml IV Total 713 ml 851 ml 588 ml 322 ml Output Urine Total 450 ml 500 ml 300 ml 250 ml 275 ml Stool Total 1 ml # Voids 2 # Bowel Movements 0 Result Diagram: 11/19/16 0808 11/19/1608 Objective Remarks GENERAL: SKIN: Warm and dry. HEAD: Atraumatic. Normocephalic. EYES: Pupils equal and round. No scleral icterus. No injection or drainage. ENT: No nasal bleeding or discharge. Mucous membranes pink and moist. NECK: Trachea midline. No JVD. CARDIOVASCULAR: Regular rate and rhythm. RESPIRATORY: B R/R, TACHYPNEIC, HARSH COUGH GASTROINTESTINAL: Abdomen soft, non-tender, nondistended. Hepatic and splenic margins not palpable. MUSCULOSKELETAL: Extremities without clubbing, cyanosis, or edema. No obvious deformities. NEUROLOGICAL: Awake and alert. No obvious cranial nerve deficits. Motor grossly within normal limits. 2 out of 5 muscle strength in the arms and legs. Normal speech. PSYCHIATRIC: Appropriate mood and affect; insight and judgment normal. Medications and IVs Current Medications Medications (Trade) Dose Ordered Sig/Mary Route Start Time Stop Time Status Last Admin (Tylenol) 650 mg Q4H PRN PO 11/16/16 12:15 (Toprol Xl) 25 mg DAILY PO 11/17/16 09:00 11/19/16 09:03 (Altace) 5 mg DAILY PO 11/17/16 09:00 11/19/16 09:03 Tamsulosin HCl 0.4 mg 0.4 mg DAILY PO 11/17/16 09:00 11/19/16 09:03 (NS 1000 ml Inj) 1,000 ml @ 42 mls/hr [id number] IV 11/16/16 12:56 11/18/16 08:56 (NS Flush) 2 ml UNSCH PRN FLUSH 11/16/16 13:00 (NS Flush) 2 ml BID FLUSH 11/16/16 21:00 11/19/16 04:56 (Zofran Inj) 4 mg Q6H PRN IVP 11/16/16 13:00 (Colace) 100 mg Q12H PO 11/16/16 13:00 11/19/16 12:49 (Milk Of Magnesia Liq) 30 ml Q12H PRN PO 11/16/16 13:00 (Heparin Inj) 5,000 units Q12H SQ 11/16/16 14:00 11/19/16 04:57 Naloxone HCl 0.4 mg 0.4 mg UNSCH PRN IV 11/16/16 13:00 (Zithromax Inj/ NS 250 ml Inj) 250 ml @ 250 mls/hr Q24H IV 11/17/16 14:00 11/18/16 14:19 (Catapres) 0.1 mg Q6H PRN PO 11/16/16 13:00 (Protonix Inj) 40 mg Q24H IV PUSH 11/16/16 14:00 11/18/16 13:18 Miscellaneous Information Patient in critical care unit? Ass... Q361D XX 11/16/16 18:00 11/16/16 18:00 (Chlorhexidine 2% Cloth) 3 pack DAILY@04 TOP 11/17/16 04:00 11/21/16 04:01 11/18/16 04:00 (Chlorhexidine 2% Cloth) 3 pack UNSCH PRN TOP 11/16/16 18:00 11/21/16 17:53 Lactobacillus Acidophilus 1 tab 1 tab Q12HR PO 11/18/16 21:00 11/19/16 09:03 (Maxipime Inj/NS Inj) 100 ml @ 200 mls/hr Q12H IV 11/18/16 13:00 11/19/16 12:47 (SoluMEDROL INJ) 40 mg Q8HR IV 11/18/16 14:00 11/19/16 04:57 A/P Assessment and Plan (1) Sepsis ICD Code: A41.9 Status: Acute Plan: Due to COPD exacerbation and pneumonia. Patient admitted to the intensive care unit Blood cultures showing gram-positive cocci Sputum culture pending but sputum Gram stain shows gram-positive cocci in pairs. ID CONSULT IV ABX IVF Sepsis at present, patient still with leukocytosis, and sinus tachycardia. (2) Acute and chronic respiratory failure ICD Code: J96.20 Status: Acute Plan: Due to COPD exacerbation pneumonia. Chest x-ray on admission showed a stable chest x-ray with background changes suggestive of obstructive airways. Consolidation in the left lower lobe. Continue supplemental oxygen to keep oxygen saturation more than 92%. (3) COPD with acute exacerbation ICD Code: J44.1 Status: Acute Plan: Patient admitted and started on IV solumedrol 60 mg IV every 6 hours. Pulmonary consulted - Dr Hernandez (4) PNA (pneumonia) ICD Code: J18.9 Status: Acute Plan: Likely community acquired pna - last hospitalization in 2013 Failed outpatient antibiotics Continue IV Rocephin and Azithromycin Blood cultures growing gram-positive cocci Influenza ---> pending check strep pneumonia antigen and urine legionella antigen Follow-up ID and sensitivities. (5) Elevated lactic acid level ICD Code: R79.89 Status: Acute Plan: Secondary to sepsis, secondary to COPD exacerbation and pneumonia normal saline 100 ml/hr (6) Leukocytosis ICD Code: D72.829 Status: Acute Plan: Due to sepsis, secondary to COPD exacerbation and pneumonia. Continue to monitor CBC (7) HTN (hypertension) ICD Code: I10 Status: Chronic Plan: Pressure seems to be stable. Continue home antihypertensive medications which include metoprolol succinate 25 mg by mouth daily. (8) BPH (benign prostatic hyperplasia) ICD Code: N40.0 Status: Chronic Plan: Continue Flomax. seems stable Assessment and Plan GI prophylaxis: Continue PPI DVT prophylaxis: SCD's, Continue heparin SQ Discharge Planning Continue to monitor in the ICU. Estiven Toth MD Nov 19, 2016 12:55
[2016-11-19] MEDS: AZITHROMYCIN INJ 500 MG in SODIUM CHLOR 0.9% 250 ML INJ 250 ML IV SCH (14:00)
[2016-11-19] MEDS: PANTOPRAZOLE SODIUM 40 MG VIAL IV PUSH SCH (14:00)
--- NOTE | 2016-11-19 16:38 | PD.ID.CON ---
History of Present Illness Service ID Consult Requested By Dr Toth Reason for Consult gram positive sepsis Primary Care Physician Shun Vyas MD Diagnoses: History of Present Illness 81 yo male with COPD/home O2 presented with resp complaints 3 days ago His CXR showed consolidation in the left lower lobe. His blood clx is positive for vir strep sputum clx with normal resp [place] and pneumococcus AG negative, influenza AG test still P He feels better He reports being exposed to with flu like smx prior to developping his illness Review of Systems Except as stated in HPI: all other systems reviewed are Neg Past Family Social History Allergies: Coded Allergies: Avelox (Verified Allergy, Severe, 08/25/14) Cipro (Verified Allergy, Severe, 08/25/14) Latex (Verified Allergy, Severe, 08/25/14) Levaquin (Verified Allergy, Severe, 08/25/14) Lortab (Verified Allergy, Severe, Hallucinations, 11/16/16) Xanax (Verified Allergy, Severe, Hallucinations, 11/16/16) *MDRO Multi-Drug Resistant Organism (Verified Allergy, Unknown, 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 Social History No Tobacco. occasionaalyy wine No Illicit Drugs. Physical Exam Vital Signs Vital Signs Date Time Temp Pulse Resp B/P Pulse Ox O2 Delivery O2 Flow Rate FiO2 11/19/16 12:00 99.3 82 41 114/66 95 11/19/16 12:00 82 11/19/16 10:00 80 11/19/16 08:17 96 Nasal Cannula 4.00 11/19/16 08:00 81 11/19/16 08:00 98.4 81 38 138/71 96 11/19/16 06:00 74 11/19/16 04:00 98.0 100 14 150/87 96 11/19/16 04:00 100 11/19/16 02:00 65 11/19/16 01:29 98 40 11/19/16 00:00 98.0 71 24 133/72 99 11/19/16 00:00 65 11/18/16 22:00 96 2/23/17 20:59 97 40 11/18/16 20:00 95 11/18/16 20:00 98.1 101 18 123/62 93 11/18/16 19:26 97 Nasal Cannula 4.00 11/18/16 18:00 91 Physical Exam CONSTITUTIONAL/GENERAL: This is an adequately nourished patient, in no apparent distress. TUBES/LINES/DRAINS: SKIN: No jaundice, rashes, or lesions. Skin temperature appropriate. Not diaphoretic. HEAD: Atraumatic. Normocephalic. EYES: Pupils equal and round and reactive. Extraocular motions intact. No scleral icterus. No injection or drainage. Fundi not examined. ENT: Hearing grossly normal. Nose without bleeding or purulent drainage. Oral mucosae without visible erythema, exudates, masses, or lesions. NECK: Trachea midline. Supple, nontender. No palpable thyroid enlargement or nodularity. CARDIOVASCULAR: Regular rate and rhythm without murmurs, gallops, or rubs. No JVD. Peripheral pulses symmetric. RESPIRATORY/CHEST: Symmetric, unlabored respirations. Few rhonchi auscultation. Breath sounds diminished bilaterally. GASTROINTESTINAL: Abdomen soft, non-tender, nondistended. No hepato-splenomegaly , or palpable masses. No guarding. Bowel sounds present. GENITOURINARY: Without palpable bladder distension. MUSCULOSKELETAL: Extremities without clubbing, cyanosis, or edema. No joint tenderness or effusion noted. No calf tenderness. No mottling or clubbing. LYMPHATICS: No palpable cervical or supraclavicular adenopathy. NEUROLOGICAL: Awake and alert. Motor and sensory grossly within normal limits. Follows commands. Cognitively sharp. Moves all extremities. PSYCHIATRIC: No obvious anxiety/depression. no apparent hallucinations or other psychotic thought process. Laboratory Laboratory Tests Test 11/19/16 08:08 White Blood Count 15.8 Red Blood Count 3.78 Hemoglobin 10.2 Hematocrit 32.0 Mean Corpuscular Volume 84.6 Mean Corpuscular Hemoglobin 27.0 Mean Corpuscular Hemoglobin 32.0 Concent Red Cell Distribution Width 16.7 Platelet Count 180 Mean Platelet Volume 8.0 Neutrophils (%) (Auto) 95.1 Lymphocytes (%) (Auto) 1.1 Monocytes (%) (Auto) 3.7 Eosinophils (%) (Auto) 0.0 Basophils (%) (Auto) 0.1 Neutrophils # (Auto) 15.0 Lymphocytes # (Auto) 0.2 Monocytes # (Auto) 0.6 Eosinophils # (Auto) 0.0 Basophils # (Auto) 0.0 CBC Comment DIFF FINAL Differential Comment Sodium Level 142 Potassium Level 4.3 Chloride Level 110 Carbon Dioxide Level 26.4 Anion Gap 6 Blood Urea Nitrogen 21 Creatinine 0.76 Estimat Glomerular Filtration 98 Rate Random Glucose 113 Calcium Level 7.2 Protein Corrected Calcium 8.1 Total Protein 5.4 Date/Time Procedure Status Source Growth 11/18/16 16:30 Gram Stain - Final Resulted Sputum Expectorated Sputum 11/18/16 16:30 Sputum Culture - Preliminary Resulted Sputum Expectorated Sputum IMMATURE GROWTH - REINCUBATE 11/17/16 15:16 Aerobic Blood Culture - Preliminary Resulted Blood Peripheral NO GROWTH IN 2 DAYS 11/17/16 15:16 Anaerobic Blood Culture - Preliminary Resulted Blood Peripheral NO GROWTH IN 2 DAYS 11/17/16 13:10 Legionella Antigen - Final Complete Urine Random Urine PRESUMPTIVE NEGATIVE FOR LEGIONELLA P... 11/17/16 13:10 Streptococcus pneumoniae Antigen (M - Final Complete Urine Random Urine PRESUMPTIVE NEGATIVE FOR STREPTOCOCCU... 11/17/16 13:10 Cancelled Urine Random Urine 11/16/16 10:50 Influenza Types A,B Antigen (ABBIE) [place] Batch Nasal Washing Pending 11/16/16 10:35 Aerobic Blood Culture - Final Resulted Blood Peripheral Viridans Streptococcus Grp 11/16/16 10:35 Anaerobic Blood Culture - Preliminary Resulted Blood Peripheral NO GROWTH IN 3 DAYS Result Diagram: 11/19/16 0808 11/19/16 0808 Imaging Last Impressions Chest X-Ray 11/16/16 1004 Signed Impressions: Service Date/Time: Wednesday, November 16, 2016 10:32 - CONCLUSION: 1. Stable chest x-ray with background lung changes suggestive of obstructive airways disease. 2. Stable atelectasis versus consolidation in the left lower lobe. Ketan Horta MD Assessment and Plan Assessment and Plan PNA , LLL , community acquired clincailly improving with current tx Viridans strepo bacteremia, low grade ? clinical significance - repeat blood clx negative - cont azithro - lott ecefepime to CFTX - ro influenza - fu blood clx untill final - low level unexplained Viridans strep bactermeia in pts with no endocvascular devices most likely represents contamination Iman Avendaño MD Nov 19, 2016 16:38
[2016-11-19] MEDS ORDERED: cefTRIAXone INJ 2,000 MG in SODIUM CHLORIDE 0.9% INJ 100 ML IV SCH (20:00)
[2016-11-19] MEDS: ACETAMINOPHEN 325 MG TAB PO PRN (21:19)
[2016-11-20] VITALS (17 sets, daily range): BP systolic 91–147; BP diastolic 68–77; PULSE 77–159; RESP 20–34; TEMP 97.5–98.5; O2SAT 93–99
[2016-11-20] MEDS: DOCUSATE SODIUM 100 MG CAP PO SCH ×2 (01:00→12:25)
[2016-11-20] MEDS: SODIUM CHLOR 0.9% 1000 ML INJ 1,000 ML IV SCH (01:04)
[2016-11-20] MEDS: HEPARIN SODIUM - SQ 10,000 UNITS/ML VIAL SQ SCH ×2 (02:24→15:02)
[2016-11-20] MEDS: CHLORHEXIDINE GLUCONATE 2 % 1 PACK (2 CLOTHS)(taper/protocol) TOP SCH ×2 (04:17→05:05)
[2016-11-20] MEDS: methylPREDNISolone SOD SUCC 40 MG/1 ML VIAL IV SCH ×3 (05:05→21:45)
[2016-11-20] MEDS: RESP: ALBUTEROL 2.5 MG/IPRATROPIUM 0.5 MG NEB (SCH) NEB ×3 (05:23→17:18)
[2016-11-20 07:10] LABS: BICARBONATE 28.7 MEQ/L (21.0-32.0); POTASSIUM 4.2 MEQ/L (3.5-5.1)
[2016-11-20 07:13] LABS: AUTOMATED NEUTROPHIL # 9.3 TH/MM3 (1.8-7.7); HEMATOCRIT 33.5 % (39.0-51.0); HEMO FLAGS DIFF FINAL; LYMPH % 3.4 % (9.0-44.0); LYMPHOCYTE # 0.3 TH/MM3 (1.0-4.8); MEAN CELL VOLUME 84.6 FL (80.0-100.0); MEAN CORPUSCULAR HEMOGLOBIN 26.9 PG (27.0-34.0); MEAN CORPUSCULAR HGB CONC 31.8 % (32.0-36.0); MONO % 5.2 % (0.0-8.0); NEUT % 91.4 % (16.0-70.0); PLATELET COUNT 165 TH/MM3 (150-450); RED BLOOD COUNT 3.96 MIL/MM3 (4.50-5.90); RED CELL DISTRIBUTION WIDTH 16.8 % (11.6-17.2); WHITE BLOOD COUNT 10.2 TH/MM3 (4.0-11.0)
[2016-11-20 07:32] LABS: CALCIUM-PROTEIN CORRECTED 8.1 MG/DL (8.5-10.1)
[2016-11-20] MEDS: RAMIPRIL 5 MG CAP PO SCH (09:25)
[2016-11-20] MEDS: TAMSULOSIN HCL 0.4 MG CAP PO SCH (09:25)
[2016-11-20] MEDS: METOPROLOL SUCCINATE 25 MG EXTENDED RELEASE TAB PO SCH (09:25)
[2016-11-20] MEDS: SODIUM CHLORIDE 0.9% FLUSH 5 ML FLUSH FLUSH SCH ×2 (09:25→21:46)
[2016-11-20] MEDS: LACTOBACILLUS ACIDOPHILUS TAB PO SCH ×2 (09:25→21:45)
[2016-11-20] MEDS ORDERED: METOPROLOL TARTRATE 25 MG TAB PO ONE (12:00)
[2016-11-20] MEDS ORDERED: METOPROLOL TARTRATE 5 MG/5 ML VIAL IV PUSH ONE (12:00)
[2016-11-20] MEDS ORDERED: METOPROLOL TARTRATE 5 MG/5 ML VIAL IV PUSH PRN (12:30)
[2016-11-20] MEDS ORDERED: CALCIUM GLUCONATE INJ 1 GM in DEXTROSE 5% IN WATER 100ML INJ 100 ML IV ONE ×2 (13:00)
[2016-11-20] MEDS: AZITHROMYCIN INJ 500 MG in SODIUM CHLOR 0.9% 250 ML INJ 250 ML IV SCH (14:00)
[2016-11-20] MEDS: PANTOPRAZOLE SODIUM 40 MG VIAL IV PUSH SCH (14:00)
[2016-11-20] MEDS ORDERED: AMIODARONE INJ 150 MG in DEXTROSE 5% IN WATER 100ML INJ 97 ML IV ONE ×4 (14:30→17:00)
[2016-11-20] MEDS ORDERED: AMIODARONE INJ 450 MG in DEXTROSE 5% IN WATE(EXCEL) INJ 241 ML IV SCH ×2 (14:30)
--- NOTE | 2016-11-20 14:50 | RADRPT ---
EXAM DATE/TIME: 11/20/2016 13:00 [facility] COMPARISON: CHEST SINGLE AP, November 16, 2016, 10:32. INDICATIONS : Shortness of breath MEDICAL HISTORY : Hypertension. Chronic obstructive pulmonary disease. SURGICAL HISTORY : None. ENCOUNTER: Subsequent ACUITY: 4 - 6 days PAIN SCORE: Non-responsive. LOCATION: Bilateral chest FINDINGS: Single AP view of the chest. Mild left lower lung opacity unchanged. The lungs are clear. Cardiomedia stinal silhouette within normal limits. No evidence of pleural effusion or pneumothorax.CONCLUSION: Mild left lower lung opacity unchanged. No acute cardiopulmonary disease identified. Ayush Marques MD on November 20, 2016 at 14:48 Board Certified Radiologist. This report was verified electronically.
--- NOTE | 2016-11-20 16:35 | EKG ---
Date Performed: 11/20/2016 Time Performed: 10:57:00 PTAGE: 81 years EKG: Atrial fibrillation with uncontrolled ventricular response Poor R wave progression - probab le normal variant Extensive T wave changes are nonspecific Generalized low QRS voltages Abnormal ECG NO PREVIOUS TRACING DOCTOR: Hayden Mackey Interpretating Date/Time 11/20/2016 16:32:38
--- NOTE | 2016-11-20 17:39 | MB ---
cc: VIKTORIA PINZON M.D. DATE OF CONSULTATION: 11/20/2016 REASON FOR CONSULTATION: Atrial fibrillation. HISTORY OF PRESENT ILLNESS: The patient is an 81-year-old white male with a history of COPD, hyperlipidemia, peripheral vascular disease, coronary artery disease, hypertension who presented to the hospital with shortness of breath. His dyspnea considerably improved and he was about to be discharged but he developed atrial fibrillation with a rapid ventricular response. He denies palpitations, dizziness, syncope, near-syncope, chest pain, paroxysmal nocturnal dyspnea, orthopnea, pedal edema. He reports no history of diabetes or CVA. PAST MEDICAL HISTORY: 1. COPD. 2. Hyperlipidemia. 3. Peripheral vascular disease status post abdominal aortic aneurysm endovascular repair 11/08/2006. 4. Coronary artery disease with cardiac catheterization 10/28/2006 showing totally occluded collateralized mid LAD, 50% obtuse marginal stenosis, 30% ostial left main, normal right coronary, ejection fraction 60%. 5. Hypertension. PAST SURGICAL HISTORY: 1. Bilateral cataract operations. 2. Right Achilles tendon repair 08/28/2008. 3. Thyroglossal cyst excision. CURRENT CARDIAC MEDICATIONS: 1. Intravenous amiodarone. 2. Metoprolol succinate 25 mg p.o. daily. 3. Altace 5 mg p.o. daily. 4. Heparin 5000 units subcutaneously q.12 h ALLERGIES: 1. AVELOX. 2. CIPRO. 3. LATEX. 4. LEVAQUIN. 5. LORTAB. 6. XANAX. FAMILY HISTORY: Noncontributory. SOCIAL HISTORY: The patient quit smoking many years ago. He denies alcohol abuse. REVIEW OF SYSTEMS: Review of systems as in the history of present illness otherwise negative or noncontributory. He also denies headache, visual changes, unilateral weakness or numbness, abdominal pain, melena, dyspepsia, bright red blood per rectum. PHYSICAL EXAMINATION: VITAL SIGNS: On physical examination, his blood pressure 108/72 with a pulse of 100, respirations 20. GENERAL: In general he is a well-developed thin white male in no acute distress. HEAD, EYES, EARS, NOSE, THROAT: On HEENT examination jugular venous pressure is normal. Carotid pulses are 2+ bilaterally and without bruits. CHEST: Examination of the chest reveals diminished breath sounds diffusely. CARDIAC: On cardiac examination he has an irregularly irregular rhythm without S3 or murmur. ABDOMEN: On abdominal examination he has a soft, nontender abdomen. Bowel sounds are present. There is no definite hepatosplenomegaly. EXTREMITIES: Examination of extremities reveals no clubbing, cyanosis or edema. LABORATORY DATA: Laboratory data includes potassium 4.2, BUN 18, creatinine 0.72, CK 41. WBC 10.2, hemoglobin 10.7, platelets 165,000. INR 1.0. IMAGING STUDIES: Chest x-ray shows mild left lower lung opacity unchanged from previous x-rays. EKG: EKG shows atrial fibrillation with a rapid ventricular response, poor R-wave progression, diffuse nonspecific T-wave abnormalities. IMPRESSION: Paroxysmal atrial fibrillation with a rapid ventricular response in this 81-year-old white male with a history of COPD, peripheral vascular disease, coronary artery disease, hypertension. His heart rates are improved with intravenous amiodarone. For the most part he is asymptomatic. There is no definite evidence for acute coronary syndrome. With respect to his thromboembolic risk, it is moderately elevated with his advanced age and history of hypertension. At this time he does not wish to begin anticoagulation therapy until his primary care physician evaluates his situation. RECOMMENDATIONS: 1. As the patient declines anticoagulation therapy at this time, recommend daily aspirin. 2. Continue intravenous amiodarone for now. 3. Increase his oral metoprolol dosing as his blood pressures tolerate. 4. Check a 2-D echo to assess his left ventricular function. MD NAHUM Abreu/LINDA /4:56 PM /5:32 PM [email or web address]
[2016-11-20] MEDS: ASPIRIN EC 325 MG TABEC PO SCH (17:45)
[2016-11-20] MEDS: CEFEPIME INJ 2,000 MG in SODIUM CHLORIDE 0.9% INJ 100 ML IV SCH (17:46)
--- NOTE | 2016-11-20 18:44 | HHI.PR ---
Addendum to Inpatient Note Additional Information growing PSAE - FTX changed to cefepinme Iman Avendaño MD Nov 20, 2016 18:44
[2016-11-20] MEDS ORDERED: DIGOXIN 0.5 MG/2 ML VIAL IV PUSH ONE (19:00)
--- NOTE | 2016-11-20 19:19 | HHI.PR ---
Subjective Remarks no sob at rest afebile Objective Last Impressions Chest X-Ray 11/20/16 0000 Signed Impressions: Service Date/Time: Sunday, November 20, 2016 13:00 - CONCLUSION: Mild left lower lung opacity unchanged. No acute cardiopulmonary disease identified. Ayush Marques MD Vital Signs Date Time Temp Pulse Resp B/P Pulse Ox O2 Delivery O2 Flow Rate FiO2 11/20/16 18:17 106 11/20/16 17:37 96 30 11/20/16 17:23 93 Nasal Cannula 3.00 11/20/16 17:05 112 11/20/16 16:30 98.4 104 20 91/68 99 11/20/16 16:00 109 11/20/16 16:00 98.4 104 20 91/68 99 11/20/16 13:56 97 Nasal Cannula 3.00 11/20/16 12:00 98.3 152 20 108/72 99 11/20/16 11:41 158 11/20/16 10:45 159 11/20/16 08:55 98 Nasal Cannula 4.00 11/20/16 08:00 80 11/20/16 08:00 98.3 83 20 147/77 99 11/20/16 04:00 97.5 77 20 135/75 99 11/20/16 00:00 98.5 86 20 131/70 98 11/19/16 20:07 98 Nasal Cannula 6.00 11/19/16 20:00 98.4 103 22 131/69 95 11/19/16 20:00 94 I/O 11/19/16 11/19/16 11/19/16 11/20/16 11/20/16 11/20/16 07:00 15:00 23:00 07:00 15:00 23:00 Intake Total 322 ml 360 ml 480 ml Output Total 250 ml 401 ml 300 ml Balance 72 ml -41 ml 180 ml Intake Oral 360 ml 480 ml IV Total 322 ml Output Urine Total 250 ml 400 ml 300 ml Stool Total 1 ml # Voids 2 # Bowel Movements 0 0 Result Diagram: 11/20/16 0553 11/20/16 0553 Objective Remarks COPD AFIB Assessment and Plan Assessment and Plan O2 NEEDED BRONCHODILATOR THERAPY ANTIBIOTCS PER ID INCREASE ACTIVITY Lalita Celis MD Nov 20, 2016 19:18
[2016-11-20] MEDS: ACETAMINOPHEN 325 MG TAB PO PRN (21:46)
[2016-11-21] VITALS (21 sets, daily range): BP systolic 122–153; BP diastolic 66–89; PULSE 54–74; RESP 18–38; TEMP 97.3–98.7; O2SAT 94–100
[2016-11-21] MEDS: HEPARIN SODIUM - SQ 10,000 UNITS/ML VIAL SQ SCH ×2 (03:00→14:37)
[2016-11-21] MEDS: DOCUSATE SODIUM 100 MG CAP PO SCH ×2 (03:01→12:11)
[2016-11-21] MEDS: CEFEPIME INJ 2,000 MG in SODIUM CHLORIDE 0.9% INJ 100 ML IV SCH ×3 (03:01→17:00)
[2016-11-21] MEDS ORDERED: LORazepam 2 MG/ML VIAL IV PUSH ONE (03:30)
[2016-11-21] MEDS: CHLORHEXIDINE GLUCONATE 2 % 1 PACK (2 CLOTHS)(taper/protocol) TOP SCH (04:00)
[2016-11-21 04:57] LABS: AUTOMATED NEUTROPHIL # 9.7 TH/MM3 (1.8-7.7); HEMATOCRIT 35.9 % (39.0-51.0); HEMO FLAGS DIFF FINAL; LYMPH % 1.9 % (9.0-44.0); LYMPHOCYTE # 0.2 TH/MM3 (1.0-4.8); MEAN CELL VOLUME 85.3 FL (80.0-100.0); MEAN CORPUSCULAR HGB CONC 31.7 % (32.0-36.0); MONO % 4.3 % (0.0-8.0); NEUT % 93.8 % (16.0-70.0); PLATELET COUNT 191 TH/MM3 (150-450); RED BLOOD COUNT 4.21 MIL/MM3 (4.50-5.90); WHITE BLOOD COUNT 10.4 TH/MM3 (4.0-11.0)
[2016-11-21 05:21] LABS: BICARBONATE 30.5 MEQ/L (21.0-32.0); POTASSIUM 4.8 MEQ/L (3.5-5.1)
[2016-11-21 05:33] LABS: CALCIUM-PROTEIN CORRECTED 7.8 MG/DL (8.5-10.1)
[2016-11-21] MEDS: methylPREDNISolone SOD SUCC 40 MG/1 ML VIAL IV SCH ×3 (06:00→20:39)
[2016-11-21] MEDS: METOPROLOL SUCCINATE 25 MG EXTENDED RELEASE TAB PO SCH (08:52)
[2016-11-21] MEDS: LACTOBACILLUS ACIDOPHILUS TAB PO SCH ×2 (08:52→20:39)
[2016-11-21] MEDS: TAMSULOSIN HCL 0.4 MG CAP PO SCH (08:52)
[2016-11-21] MEDS: ASPIRIN EC 325 MG TABEC PO SCH (08:53)
[2016-11-21] MEDS: RAMIPRIL 5 MG CAP PO SCH (08:53)
[2016-11-21] MEDS: SODIUM CHLORIDE 0.9% FLUSH 5 ML FLUSH FLUSH SCH ×2 (09:00→20:38)
--- NOTE | 2016-11-21 09:23 | HHI.PR ---
Subjective Remarks Late entry. Date of service 11/20/16. Patient seen in the morning around 11:30 AM. He says he is feeling all right. Says that shortness of breath has improved throughout admission. He denies any chest pain or shortness of breath. Denies any nausea or vomiting. No acute events overnight. He does say that he is on BiPAP at night at home, and was on this in the ICU as well, however did not have it last night while on the floor. Discussed with nursing. Patient has been tachycardic in the 150s, found to be in atrial fibrillation with RVR on EKG this morning. Heart rate improved with metoprolol IV, increasing by mouth metoprolol. Cardiology consult. I suspect this episode of RVR is exacerbated by the fact the patient did not receive BiPAP last night. BiPAP while sleeping has been ordered. Objective Vital Signs Date Time Temp Pulse Resp B/P Pulse Ox O2 Delivery O2 Flow Rate FiO2 11/21/16 08:45 100 Non-Rebreather 15.00 11/21/16 03:41 99 30 11/21/16 03:20 98.1 74 24 123/67 99 11/21/16 03:00 100 Non-Rebreather 15.00 100 11/21/16 00:20 98.1 71 38 153/89 96 11/20/16 21:48 94 30 11/20/16 19:45 99 Nasal Cannula 3.00 11/20/16 19:45 98.1 104 34 120/73 99 11/20/16 18:17 106 11/20/16 17:37 96 30 11/20/16 17:23 93 Nasal Cannula 3.00 11/20/16 17:05 112 11/20/16 16:30 98.4 104 20 91/68 99 11/20/16 16:00 109 11/20/16 16:00 98.4 104 20 91/68 99 11/20/16 13:56 97 Nasal Cannula 3.00 11/20/16 12:00 98.3 152 20 108/72 99 11/20/16 11:41 158 11/20/16 10:45 159 I/O 11/20/16 11/20/16 11/20/16 11/21/16 11/21/16 11/21/16 07:00 15:00 23:00 07:00 15:00 23:00 Intake Total 480 ml Output Total 300 ml 320 ml Balance 180 ml -320 ml Intake Oral 480 ml Output Urine Total 300 ml 320 ml # Bowel Movements 0 Result Diagram: 11/21/1642611/21/16426 Objective Remarks GENERAL: patient sitting up in bed. Appears comfortable. Alert and oriented 3. SKIN: Warm and dry. HEAD: Normocephalic. EYES: No scleral icterus. No injection or drainage. NECK: Supple, trachea midline. No JVD or lymphadenopathy. CARDIOVASCULAR: Regular rate and rhythm without murmurs, gallops, or rubs. RESPIRATORY: Breath sounds equal bilaterally. No accessory muscle use.bilateral wheezes. GASTROINTESTINAL: Abdomen soft, non-tender, nondistended. MUSCULOSKELETAL: No cyanosis, or edema. BACK: Nontender without obvious deformity. No CVA tenderness. A/P Assessment and Plan Sepsis. ID following. Pseudomonas. Continue antibiotics as per infectious disease. Improving. Continue to monitor. Atrial fibrillation with RVR. Increase metoprolol. Cardiology consult. Transferred [facility]. Expect to improve with BiPAP for COPD. COPD exacerbation. Continue oxygen, do nebs, IV steroids, -11/20. Start BiPAP at night //Pneumonia. -Continue antibiotics as per infectious disease Consult pulmonology. Leukocytosis. Currently resolved. Continue to monitor Elevated lactic acid level. Likely secondary to sepsis. Continue IV fluids. Hypertension. Blood pressure stable. Continue home medications. Increase the metoprolol for atrial fibrillation. BPH. Chronic. Continue Flomax. Prophylaxis. Continue heparin subcutaneous Anthony Hagen MD Nov 21, 2016 09:23
--- NOTE | 2016-11-21 11:29 | PD.CARD.PN ---
Subjective Subjective Remarks Denies CP, palpitations, dizziness, nausea. Dyspnea improving slowly. Slept well. Objective Medications Item Value Date Time Metoprolol 50 mg 11/21/16 0900 Succinate DAILY/PO 11/21/16 0852 (Toprol Xl) Aspirin 325 mg 11/20/16 1700 (Ecotrin Ec) DAILY/PO 11/21/16 0853 Amiodarone HCl 250 ml @ 0 mls/hr 11/20/16 1430 450 mg/Dextrose CONTINUOUS/IV 11/20/16 1453 Metoprolol 5 mg 11/20/16 1230 Tartrate Q5M PRN/IV PUSH 11/20/16 1245 (Lopressor Inj) Ramipril 5 mg 11/17/16 0900 (Altace) DAILY/PO 11/21/16 0853 Vital Signs / I&O Vital Signs Date Time Temp Pulse Resp B/P Pulse Ox O2 Delivery O2 Flow Rate FiO2 11/21/16 08:45 100 Non-Rebreather 15.00 11/21/16 03:41 99 30 11/21/16 03:20 98.1 74 24 123/67 99 11/21/16 03:00 100 Non-Rebreather 15.00 100 11/21/16 00:20 98.1 71 38 153/89 96 11/20/16 21:48 94 30 11/20/16 19:45 99 Nasal Cannula 3.00 11/20/16 19:45 98.1 104 34 120/73 99 11/20/16 18:17 106 11/20/16 17:37 96 30 11/20/16 17:23 93 Nasal Cannula 3.00 11/20/16 17:05 112 11/20/16 16:30 98.4 104 20 91/68 99 11/20/16 16:00 109 11/20/16 16:00 98.4 104 20 91/68 99 11/20/16 13:56 97 Nasal Cannula 3.00 11/20/16 12:00 98.3 152 20 108/72 99 11/20/16 11:41 158 I/O 11/20/16 11/20/16 11/20/16 11/21/16 11/21/16 11/21/16 07:00 15:00 23:00 07:00 15:00 23:00 Intake Total 480 ml Output Total 300 ml 320 ml Balance 180 ml -320 ml Intake Oral 480 ml Output Urine Total 300 ml 320 ml # Bowel Movements 0 Physical Exam GENERAL: Well developed, well nourished. No acute distress. HEENT: Jugular venous pressure is normal. CHEST: Diminished breath sounds diffusely. Few rhonchi. CARDIAC: Regular rate and rhythm without S3, S4, or murmur. ABDOMEN: Soft, nontender, no hepatosplenomegaly. Bowel sounds present. EXTREMITIES: No clubbing, cyanosis, or edema. Laboratory Laboratory Tests Test 11/20/16 11/21/16 14:00 04:27 B-Type Natriuretic Peptide 291 PG/ML White Blood Count 10.4 TH/MM3 Red Blood Count 4.21 MIL/MM3 Hemoglobin 11.4 GM/DL Hematocrit 35.9 % Mean Corpuscular Volume 85.3 FL Mean Corpuscular Hemoglobin 27.0 PG Mean Corpuscular Hemoglobin 31.7 % Concent Red Cell Distribution Width 17.0 % Platelet Count 191 TH/MM3 Mean Platelet Volume 8.1 FL Neutrophils (%) (Auto) 93.8 % Lymphocytes (%) (Auto) 1.9 % Monocytes (%) (Auto) 4.3 % Eosinophils (%) (Auto) 0.0 % Basophils (%) (Auto) 0.0 % Neutrophils # (Auto) 9.7 TH/MM3 Lymphocytes # (Auto) 0.2 TH/MM3 Monocytes # (Auto) 0.4 TH/MM3 Eosinophils # (Auto) 0.0 TH/MM3 Basophils # (Auto) 0.0 TH/MM3 CBC Comment DIFF FINAL Differential Comment Sodium Level 143 MEQ/L Potassium Level 4.8 MEQ/L Chloride Level 107 MEQ/L Carbon Dioxide Level 30.5 MEQ/L Anion Gap 6 MEQ/L Blood Urea Nitrogen 25 MG/DL Creatinine 0.80 MG/DL Estimat Glomerular Filtration 93 ML/MIN Rate Random Glucose 132 MG/DL Calcium Level 7.3 MG/DL Protein Corrected Calcium 7.8 MG/DL Total Protein 6.2 GM/DL Assessment and Plan Problem List: (1) Paroxysmal atrial fibrillation Assessment and Plan: Appears to be back in NSR with PACs. Tolerating IV Amiodarone. Rec check EKG, try to switch Amiodarone to oral, continue oral metoprolol. As noted, patient declines anticoagulation therapy, agrees to daily aspirin. (2) CAD (coronary artery disease) Assessment and Plan: History of occluded, collateralized LAD by cath years ago. Continue medical therapy. No recent angina. (3) HTN (hypertension) Assessment and Plan: Stable at present. Code Status Alternative code Discussed Condition With patient Problem Qualifiers (1) CAD (coronary artery disease): Qualified Code: I25.10 - Coronary artery disease involving [place] coronary artery of [place] heart without angina pectoris (2) HTN (hypertension): Qualified Code: I10 - Essential hypertension Hayden Mackey MD Nov 21, 2016 11:29
--- NOTE | 2016-11-21 11:33 | EKG ---
Date Performed: 11/21/2016 Time Performed: 10:26:04 PTAGE: 81 years EKG: Sinus rhythm . Septal T wave changes are nonspecific Low QRS voltages in limb leads Borderline ECG PREVIOUS TRACING : 11/20/2016 10.57 Compared to previous tracing, sinus rhythm has replaced atr ial fibrillation, heart rate has slowed. DOCTOR: Hayden Mackey Interpretating Date/Time 11/21/2016 11:32:34
--- NOTE | 2016-11-21 11:46 | HHI.PR ---
Subjective Remarks Follow-up for sepsis, A. fib w/RVR, COPD exacerbation, pneumonia. Patient reports feeling slightly better today. Still short of breath however improved. He had an episode last night where he could not tolerate the BiPAP mask and became acutely short of breath, tachypneic, and anxious. However he did eventually calm down and fall asleep with the bipap in place. Discussed extensively with the patient and his about bringing in the patient's own BiPAP machine and mask. Objective Vitals Vital Signs Date Time Temp Pulse Resp B/P Pulse Ox O2 Delivery O2 Flow Rate FiO2 11/21/16 08:45 100 Non-Rebreather 15.00 11/21/16 03:41 99 30 11/21/16 03:20 98.1 74 24 123/67 99 11/21/16 03:00 100 Non-Rebreather 15.00 100 11/21/16 00:20 98.1 71 38 153/89 96 11/20/16 21:48 94 30 11/20/16 19:45 99 Nasal Cannula 3.00 11/20/16 19:45 98.1 104 34 120/73 99 11/20/16 18:17 106 11/20/16 17:37 96 30 11/20/16 17:23 93 Nasal Cannula 3.00 11/20/16 17:05 112 11/20/16 16:30 98.4 104 20 91/68 99 11/20/16 16:00 109 11/20/16 16:00 98.4 104 20 91/68 99 11/20/16 13:56 97 Nasal Cannula 3.00 11/20/16 12:00 98.3 152 20 108/72 99 11/20/16 11:41 158 I/O 11/20/16 11/20/16 11/20/16 11/21/16 11/21/16 11/21/16 07:00 15:00 23:00 07:00 15:00 23:00 Intake Total 480 ml Output Total 300 ml 320 ml Balance 180 ml -320 ml Intake Oral 480 ml Output Urine Total 300 ml 320 ml # Bowel Movements 0 Result Diagram: 11/21/16 0427 11/21/16 0427 Imaging Last Impressions Chest X-Ray 11/20/16 0000 Signed Impressions: Service Date/Time: Sunday, November 20, 2016 13:00 - CONCLUSION: Mild left lower lung opacity unchanged. No acute cardiopulmonary disease identified. Ayush Marques MD Objective Remarks GENERAL: Well-nourished, well-developed elderly male patient in NAD. SKIN: Warm and dry. No rash. HEENT: Normocephalic. Atraumatic. PERRLA. No scleral icterus. No injection or drainage. Mucous membranes pink and moist. NECK: Supple. Trachea midline. CARDIOVASCULAR: Regular rate and rhythm. S1, S2 noted. No murmur appreciated. RESPIRATORY: No accessory muscle use. Clear to auscultation. Breath sounds equal bilaterally. GASTROINTESTINAL: Abdomen soft, non-tender, nondistended. Normoactive bowel sounds x4. MUSCULOSKELETAL: No obvious deformities. Extremities without clubbing, cyanosis , or edema. NEUROLOGICAL: Awake and alert. No obvious cranial nerve deficits. Motor grossly within normal limits. 5/5 muscle strength in bilateral upper and lower extremities. Normal speech. PSYCHIATRIC: Appropriate mood and affect; insight and judgment normal. Medications and IVs Current Medications Medications (Trade) Dose Ordered Sig/Mary Route Start Time Stop Time Status Last Admin (Tylenol) 650 mg Q4H PRN PO 11/16/16 12:15 11/20/16 21:46 (Altace) 5 mg DAILY PO 11/17/16 09:00 11/21/16 08:53 (Flomax) 0.4 mg DAILY PO 11/17/16 09:00 11/21/16 08:52 (NS Flush) 2 ml UNSCH PRN FLUSH 11/16/16 13:00 (NS Flush) 2 ml BID FLUSH 11/16/16 21:00 11/21/16 09:00 (Zofran Inj) 4 mg Q6H PRN IVP 11/16/16 13:00 (Colace) 100 mg Q12H PO 11/16/16 13:00 11/21/16 03:01 (Milk Of Magnesia Liq) 30 ml Q12H PRN PO 11/16/16 13:00 (Heparin Inj) 5,000 units Q12H SQ 11/16/16 14:00 11/21/16 03:00 Naloxone HCl 0.4 mg 0.4 mg UNSCH PRN IV 11/16/16 13:00 (Zithromax Inj/ NS 250 ml Inj) 250 ml @ 250 mls/hr Q24H IV 11/17/16 14:00 11/20/16 14:00 (Catapres) 0.1 mg Q6H PRN PO 11/16/16 13:00 (Protonix Inj) 40 mg Q24H IV PUSH 11/16/16 14:00 11/20/16 14:00 Miscellaneous Information Patient in critical care unit? Ass... [id number] XX 11/16/16 18:00 11/16/16 18:00 (Chlorhexidine 2% Cloth) 3 pack UNSCH PRN TOP 11/16/16 18:00 11/21/16 17:53 (Lactinex) 1 tab Q12HR PO 11/18/16 21:00 11/21/16 08:52 (SoluMEDROL INJ) 40 mg Q8HR IV 11/18/16 14:00 11/21/16 06:00 Metoprolol Tartrate 5 mg 5 mg Q5M PRN IV PUSH 11/20/16 12:30 11/20/16 12:45 (Maxipime Inj/NS Inj) 100 ml @ 200 mls/hr Q8H IV 11/20/16 17:00 11/21/16 09:00 (Toprol Xl) 50 mg DAILY PO 11/21/16 09:00 11/21/16 08:52 (Ecotrin Ec) 325 mg DAILY PO 11/20/16 17:00 11/21/16 08:53 (Cordarone) 400 mg Q12HR PO 11/21/16 11:30 UNV A/P Problem List: (1) Sepsis ICD Code: A41.9 Status: Acute (2) Acute and chronic respiratory failure ICD Code: J96.20 Status: Acute (3) COPD with acute exacerbation ICD Code: J44.1 Status: Acute (4) PNA (pneumonia) ICD Code: J18.9 Status: Acute (5) Elevated lactic acid level ICD Code: R79.89 Status: Acute (6) Leukocytosis ICD Code: D72.829 Status: Acute (7) HTN (hypertension) ICD Code: I10 Status: Chronic (8) BPH (benign prostatic hyperplasia) ICD Code: N40.0 Status: Chronic Assessment and Plan 81-year-old male with history of COPD, hypertension, AAA, presents with severe shortness of breath and dyspnea on exertion Sepsis. -ID following. Sputum culture with Pseudomonas. Continue antibiotics with IV Cefepime and IV Azithro, per infectious disease. Improving. Continue to monitor. Atrial fibrillation with RVR -Transferred to [facility]. Increased metoprolol. Cardiology consulted. Patient declines anticoagulation therapy, agrees to continue aspirin. Expect to improve with BiPAP for COPD. Now back in NSR. COPD exacerbation. -Continue oxygen, duo nebs, IV steroids, -Started back on BiPAP at night, instructed patient's to bring in the patient's machine/mask Pneumonia -Continue antibiotics as per infectious disease -Consult pulmonology. Leukocytosis -Currently resolved. Continue to monitor Elevated lactic acid level -Likely secondary to sepsis. Continue IV fluids. Hypertension. -Blood pressure stable. Continue home medications. Increased the metoprolol for atrial fibrillation. BPH. Chronic. Continue Flomax. DVT Prophylaxis. Continue heparin subcutaneous Written by Xiomy Cartagena, acting as scribe for Dr. Hagen on 11/21/16 at 1100hrs. Attending Statement The documentation accurately reflects the work performed [id number] by ne, Dr. Hagen on 11/21/16 at 1100hrs. Problem Qualifiers (1) HTN (hypertension): Qualified Code: I10 - Essential hypertension (2) BPH (benign prostatic hyperplasia): Qualified Code: N40.0 - Benign prostatic hyperplasia without lower urinary tract symptoms, unspecified morphology Xiomy Cartagena PA-C Nov 21, 2016 11:46 Anthony Hagen MD Nov 22, 2016 02:16
[2016-11-21] MEDS: AMIODARONE 200 MG TAB PO SCH ×2 (12:11→20:39)
[2016-11-21] MEDS: PANTOPRAZOLE SODIUM 40 MG VIAL IV PUSH SCH (14:36)
[2016-11-21] MEDS: AZITHROMYCIN INJ 500 MG in SODIUM CHLOR 0.9% 250 ML INJ 250 ML IV SCH (14:37)
--- NOTE | 2016-11-21 17:43 | HHI.PR ---
Subjective Remarks no sob at rest afebile Objective Vital Signs Date Time Temp Pulse Resp B/P Pulse Ox O2 Delivery O2 Flow Rate FiO2 11/21/16 16:04 68 11/21/16 15:49 97.6 70 20 125/66 94 11/21/16 15:48 71 11/21/16 14:24 69 11/21/16 13:37 68 11/21/16 12:19 97.4 67 22 131/70 98 11/21/16 12:18 68 11/21/16 10:00 72 11/21/16 09:00 69 11/21/16 08:45 100 Non-Rebreather 15.00 11/21/16 08:00 62 11/21/16 08:00 97.3 70 18 140/77 100 11/21/16 03:41 99 30 11/21/16 03:20 98.1 74 24 123/67 99 11/21/16 03:00 100 Non-Rebreather 15.00 100 11/21/16 00:20 98.1 71 38 153/89 96 11/20/16 21:48 94 30 11/20/16 19:45 99 Nasal Cannula 3.00 11/20/16 19:45 98.1 104 34 120/73 99 11/20/16 18:17 106 I/O 11/20/16 11/20/16 11/20/16 11/21/16 11/21/16 11/21/16 07:00 15:00 23:00 07:00 15:00 23:00 Intake Total 480 ml Output Total 300 ml 320 ml Balance 180 ml -320 ml Intake Oral 480 ml Output Urine Total 300 ml 320 ml # Bowel Movements 0 Result Diagram: 11/21/16 0427 11/21/16 0427 Objective Remarks COPD AFIB Assessment and Plan Assessment and Plan O2 NEEDED BRONCHODILATOR THERAPY ANTIBIOTCS PER ID INCREASE ACTIVITY Discussed Condition With Last 48 hours Impressions Chest X-Ray 11/20/16 0000 Signed Impressions: Service Date/Time: Sunday, November 20, 2016 13:00 - CONCLUSION: Mild left lower lung opacity unchanged. No acute cardiopulmonary disease identified. Ayush Marques MD Discharge Planning GENERAL: SKIN: Warm and dry. HEAD: Atraumatic. Normocephalic. EYES: Pupils equal and round. No scleral icterus. No injection or drainage. ENT: No nasal bleeding or discharge. Mucous membranes pink and moist. NECK: Trachea midline. No JVD. CARDIOVASCULAR: Regular rate and rhythm. RESPIRATORY: No accessory muscle use. Clear to auscultation. Breath sounds equal bilaterally. GASTROINTESTINAL: Abdomen soft, non-tender, nondistended. Hepatic and splenic margins not palpable. MUSCULOSKELETAL: Extremities without clubbing, cyanosis, or edema. No obvious deformities. NEUROLOGICAL: Awake and alert. No obvious cranial nerve deficits. Motor grossly within normal limits. Five out of 5 muscle strength in the arms and legs. Normal speech. PSYCHIATRIC: Appropriate mood and affect; insight and judgment normal. Lalita Celis MD Nov 21, 2016 17:43
[2016-11-22] VITALS (25 sets, daily range): BP systolic 123–153; BP diastolic 73–91; PULSE 56–76; RESP 18–28; TEMP 97.8–98.4; O2SAT 93–100
[2016-11-22] MEDS: DOCUSATE SODIUM 100 MG CAP PO SCH ×2 (01:58→12:47)
[2016-11-22] MEDS: HEPARIN SODIUM - SQ 10,000 UNITS/ML VIAL SQ SCH ×2 (01:58→12:47)
[2016-11-22] MEDS: CEFEPIME INJ 2,000 MG in SODIUM CHLORIDE 0.9% INJ 100 ML IV SCH ×3 (01:58→15:40)
[2016-11-22] MEDS: methylPREDNISolone SOD SUCC 40 MG/1 ML VIAL IV SCH ×2 (05:27→21:20)
[2016-11-22 06:09] LABS: AUTOMATED NEUTROPHIL # 6.2 TH/MM3 (1.8-7.7); HEMATOCRIT 34.3 % (39.0-51.0); HEMO FLAGS DIFF FINAL; LYMPH % 2.3 % (9.0-44.0); LYMPHOCYTE # 0.2 TH/MM3 (1.0-4.8); MEAN CELL VOLUME 84.7 FL (80.0-100.0); MEAN CORPUSCULAR HEMOGLOBIN 27.2 PG (27.0-34.0); MONO % 6.3 % (0.0-8.0); NEUT % 91.4 % (16.0-70.0); PLATELET COUNT 174 TH/MM3 (150-450); RED BLOOD COUNT 4.05 MIL/MM3 (4.50-5.90); RED CELL DISTRIBUTION WIDTH 16.9 % (11.6-17.2); WHITE BLOOD COUNT 6.8 TH/MM3 (4.0-11.0)
[2016-11-22] MEDS: RESP: ALBUTEROL 2.5 MG/IPRATROPIUM 0.5 MG NEB (PRN) NEB ×2 (06:27→09:42)
[2016-11-22 06:33] LABS: BICARBONATE 29.7 MEQ/L (21.0-32.0); MAGNESIUM 2.3 MG/DL (1.5-2.5); POTASSIUM 4.8 MEQ/L (3.5-5.1)
[2016-11-22] MEDS: LACTOBACILLUS ACIDOPHILUS TAB PO SCH ×2 (08:39→21:20)
[2016-11-22] MEDS: RAMIPRIL 5 MG CAP PO SCH (08:39)
[2016-11-22] MEDS: ASPIRIN EC 325 MG TABEC PO SCH (08:39)
[2016-11-22] MEDS: AMIODARONE 200 MG TAB PO SCH ×2 (08:39→21:21)
[2016-11-22] MEDS: SODIUM CHLORIDE 0.9% FLUSH 5 ML FLUSH FLUSH SCH ×2 (08:40→21:21)
[2016-11-22] MEDS: TAMSULOSIN HCL 0.4 MG CAP PO SCH (08:40)
[2016-11-22] MEDS: METOPROLOL SUCCINATE 25 MG EXTENDED RELEASE TAB PO SCH (08:40)
--- NOTE | 2016-11-22 09:52 | PD.CARD.PN ---
Subjective Subjective Remarks Mildly dyspneic. Slept poorly. No CP, dizziness, palpitations, orthopnea. Objective Medications Item Value Date Time Amiodarone HCl 400 mg 11/21/16 1200 (Cordarone) Q12HR/PO 11/22/16 0839 Metoprolol 50 mg 11/21/16 0900 Succinate DAILY/PO 11/22/16 0840 (Toprol Xl) Aspirin 325 mg 11/20/16 1700 (Ecotrin Ec) DAILY/PO 11/22/16 0839 Metoprolol 5 mg 11/20/16 1230 Tartrate Q5M PRN/IV PUSH 11/20/16 1245 (Lopressor Inj) Ramipril 5 mg 11/17/16 0900 (Altace) DAILY/PO 11/22/16 0839 Vital Signs / I&O Vital Signs Date Time Temp Pulse Resp B/P Pulse Ox O2 Delivery O2 Flow Rate FiO2 11/22/16 09:44 97 3.00 11/22/16 08:00 76 11/22/16 08:00 97.8 72 28 150/87 95 11/22/16 06:36 95 IN LINE 6.00 11/22/16 06:00 72 11/22/16 05:15 98 Nasal Cannula 3.00 11/22/16 05:00 68 11/22/16 04:00 73 11/22/16 03:00 60 11/22/16 03:00 98.4 60 20 139/81 94 11/22/16 02:00 59 11/22/16 01:00 56 11/22/16 00:00 58 11/21/16 23:00 98.7 54 20 139/79 94 11/21/16 23:00 54 11/21/16 22:00 56 11/21/16 21:00 60 11/21/16 20:00 98.4 62 18 122/67 97 11/21/16 20:00 62 11/21/16 18:15 65 11/21/16 17:45 67 11/21/16 16:04 68 11/21/16 15:49 97.6 70 20 125/66 94 11/21/16 15:48 71 11/21/16 14:24 69 11/21/16 13:37 68 11/21/16 12:19 97.4 67 22 131/70 98 11/21/16 12:18 68 11/21/16 10:00 72 I/O 11/21/16 11/21/16 11/21/16 11/22/16 11/22/16 11/22/16 07:00 15:00 23:00 07:00 15:00 23:00 Intake Total 480 ml 630 ml Output Total 320 ml 550 ml 750 ml Balance -320 ml -70 ml -120 ml Intake Oral 480 ml 480 ml IV Total 150 ml Output Urine Total 320 ml 550 ml 750 ml # Voids 1 # Bowel Movements 0 Physical Exam GENERAL: Well developed, well nourished. No acute distress. HEENT: Jugular venous pressure is normal. CHEST: Diminished breath sounds diffusely. Few rhonchi. CARDIAC: Regular rate and rhythm without S3, S4, or murmur. ABDOMEN: Soft, nontender, no hepatosplenomegaly. Bowel sounds present. EXTREMITIES: No clubbing, cyanosis, or edema. Laboratory Laboratory Tests Test 11/22/16 05:30 White Blood Count 6.8 TH/MM3 Red Blood Count 4.05 MIL/MM3 Hemoglobin 11.0 GM/DL Hematocrit 34.3 % Mean Corpuscular Volume 84.7 FL Mean Corpuscular Hemoglobin 27.2 PG Mean Corpuscular Hemoglobin 32.0 % Concent Red Cell Distribution Width 16.9 % Platelet Count 174 TH/MM3 Mean Platelet Volume 8.2 FL Neutrophils (%) (Auto) 91.4 % Lymphocytes (%) (Auto) 2.3 % Monocytes (%) (Auto) 6.3 % Eosinophils (%) (Auto) 0.0 % Basophils (%) (Auto) 0.0 % Neutrophils # (Auto) 6.2 TH/MM3 Lymphocytes # (Auto) 0.2 TH/MM3 Monocytes # (Auto) 0.4 TH/MM3 Eosinophils # (Auto) 0.0 TH/MM3 Basophils # (Auto) 0.0 TH/MM3 CBC Comment DIFF FINAL Differential Comment Sodium Level 145 MEQ/L Potassium Level 4.8 MEQ/L Chloride Level 109 MEQ/L Carbon Dioxide Level 29.7 MEQ/L Anion Gap 6 MEQ/L Blood Urea Nitrogen 27 MG/DL Creatinine 0.73 MG/DL Estimat Glomerular Filtration 103 ML/MIN Rate Random Glucose 119 MG/DL Calcium Level 7.9 MG/DL Phosphorus Level 2.1 MG/DL Magnesium Level 2.3 MG/DL Albumin 2.6 GM/DL Assessment and Plan Problem List: (1) Paroxysmal atrial fibrillation Assessment and Plan: Remains in NSR. Tolerating Amiodarone. Continue oral Amiodarone and oral metoprolol. As noted, patient declines anticoagulation therapy, agrees to daily aspirin. (2) CAD (coronary artery disease) Assessment and Plan: History of occluded, collateralized LAD by cath years ago. Continue medical therapy. No recent angina. (3) HTN (hypertension) Assessment and Plan: Mildly elevated BP's. Consider adding amlodipine. Code Status alternative code Discussed Condition With patient Problem Qualifiers (1) CAD (coronary artery disease): Qualified Code: I25.10 - Coronary artery disease involving [place] coronary artery of [place] heart without angina pectoris (2) HTN (hypertension): Qualified Code: I10 - Essential hypertension Hayden Mackey MD Nov 22, 2016 09:52
--- NOTE | 2016-11-22 12:32 | HHI.FPPN ---
Subjective Remarks CONF W SOB, C/O CHEUNG D/W RN Objective Vitals Vital Signs Date Time Temp Pulse Resp B/P Pulse Ox O2 Delivery O2 Flow Rate FiO2 11/22/16 12:00 97.9 72 24 153/91 100 11/22/16 12:00 70 11/22/16 11:00 70 11/22/16 10:00 76 11/22/16 09:44 97 3.00 11/22/16 09:00 76 11/22/16 08:00 76 11/22/16 08:00 97.8 72 28 150/87 95 11/22/16 07:00 62 11/22/16 06:36 95 IN LINE 6.00 11/22/16 06:00 72 11/22/16 05:15 98 Nasal Cannula 3.00 11/22/16 05:00 68 11/22/16 04:00 73 11/22/16 03:00 60 11/22/16 03:00 98.4 60 20 139/81 94 11/22/16 02:00 59 11/22/16 01:00 56 11/22/16 00:00 58 11/21/16 23:00 98.7 54 20 139/79 94 11/21/16 23:00 54 11/21/16 22:00 56 11/21/16 21:00 60 11/21/16 20:00 98.4 62 18 122/67 97 11/21/16 20:00 62 11/21/16 18:15 65 11/21/16 17:45 67 11/21/16 16:04 68 11/21/16 15:49 97.6 70 20 125/66 94 11/21/16 15:48 71 11/21/16 14:24 69 11/21/16 13:37 68 I/O 11/21/16 11/21/16 11/21/16 11/22/16 11/22/16 11/22/16 07:00 15:00 23:00 07:00 15:00 23:00 Intake Total 480 ml 630 ml Output Total 320 ml 550 ml 750 ml Balance -320 ml -70 ml -120 ml Intake Oral 480 ml 480 ml IV Total 150 ml Output Urine Total 320 ml 550 ml 750 ml # Voids 1 # Bowel Movements 0 Result Diagram: 11/22/1652911/22/16529 Objective Remarks GENERAL: TACHYPNEIC, 1-2 WORD STATEMENTS SKIN: Warm and dry. HEAD: Atraumatic. Normocephalic. EYES: Pupils equal and round. No scleral icterus. No injection or drainage. ENT: No nasal bleeding or discharge. Mucous membranes pink and moist. NECK: Trachea midline. No JVD. CARDIOVASCULAR: Regular rate and rhythm. RESPIRATORY: B R/R, TACHYPNEIC, HARSH COUGH GASTROINTESTINAL: Abdomen soft, non-tender, nondistended. Hepatic and splenic margins not palpable. MUSCULOSKELETAL: Extremities without clubbing, cyanosis, or edema. No obvious deformities. NEUROLOGICAL: Awake and alert. No obvious cranial nerve deficits. Motor grossly within normal limits. 2 out of 5 muscle strength in the arms and legs. Normal speech. PSYCHIATRIC: Appropriate mood and affect; insight and judgment normal. Medications and IVs Current Medications Medications (Trade) Dose Ordered Sig/Mary Route Start Time Stop Time Status Last Admin (Tylenol) 650 mg Q4H PRN PO 11/16/16 12:15 11/20/16 21:46 (Altace) 5 mg DAILY PO 11/17/16 09:00 11/22/16 08:39 (Flomax) 0.4 mg DAILY PO 11/17/16 09:00 11/22/16 08:40 (NS Flush) 2 ml UNSCH PRN FLUSH 11/16/16 13:00 (NS Flush) 2 ml BID FLUSH 11/16/16 21:00 11/22/16 08:40 (Zofran Inj) 4 mg Q6H PRN IVP 11/16/16 13:00 (Colace) 100 mg Q12H PO 11/16/16 13:00 11/22/16 01:58 (Milk Of Magnesia Liq) 30 ml Q12H PRN PO 11/16/16 13:00 11/22/16 08:41 (Heparin Inj) 5,000 units Q12H SQ 11/16/16 14:00 11/22/16 01:58 Naloxone HCl 0.4 mg 0.4 mg UNSCH PRN IV 11/16/16 13:00 (Zithromax Inj/ NS 250 ml Inj) 250 ml @ 250 mls/hr Q24H IV 11/17/16 14:00 11/21/16 14:37 (Catapres) 0.1 mg Q6H PRN PO 11/16/16 13:00 (Protonix Inj) 40 mg Q24H IV PUSH 11/16/16 14:00 11/21/16 14:36 Miscellaneous Information Patient in critical care unit? Ass... Q361D XX 11/16/16 18:00 11/16/16 18:00 (Lactinex) 1 tab Q12HR PO 11/18/16 21:00 11/22/16 08:39 Metoprolol Tartrate 5 mg 5 mg Q5M PRN IV PUSH 11/20/16 12:30 11/20/16 12:45 (Maxipime Inj/NS Inj) 100 ml @ 200 mls/hr Q8H IV 11/20/16 17:00 11/22/16 08:39 (Toprol Xl) 50 mg DAILY PO 11/21/16 09:00 11/22/16 08:40 (Ecotrin Ec) 325 mg DAILY PO 11/20/16 17:00 11/22/16 08:39 (Cordarone) 400 mg Q12HR PO 11/21/16 12:00 11/22/16 08:39 (SoluMEDROL INJ) 30 mg BID IV 11/22/16 21:00 UNV (Symbicort 160-4.5 Inh) 1 puff Q12HR INH 11/22/16 21:00 UNV A/P Assessment and Plan (1) Sepsis, RESOLVED ICD Code: A41.9 Status: Acute Plan: Due to COPD exacerbation and pneumonia. Patient admitted to the intensive care unit Blood cultures showing gram-positive cocci Sputum culture SHOWS PSEUDOMONAS ID CONSULT IV ABX IVF (2) Acute and chronic respiratory failure ICD Code: J96.20 Status: Acute Plan: Due to COPD exacerbation pneumonia. Chest x-ray on admission showed a stable chest x-ray with background changes suggestive of obstructive airways. Consolidation in the left lower lobe. Continue supplemental oxygen to keep oxygen saturation more than 92%. (3) COPD with acute exacerbation ICD Code: J44.1 Status: Acute Plan: IV solumedrol Pulmonary consulted - Dr Hernandez (4) PNA (pneumonia) ICD Code: J18.9 Status: Acute Plan: Likely community acquired pna - last hospitalization in 2013 Failed outpatient antibiotics Continue IV ABX Blood cultures growing gram-positive cocci Influenza ---> pending check strep pneumonia antigen and urine legionella antigen Follow-up ID and sensitivities. (5) Elevated lactic acid level ICD Code: R79.89 Status: Acute Plan: Secondary to sepsis, secondary to COPD exacerbation and pneumonia normal saline 100 ml/hr (6) Leukocytosis ICD Code: D72.829 Status: Acute Plan: Due to sepsis, secondary to COPD exacerbation and pneumonia. Continue to monitor CBC (7) HTN (hypertension) ICD Code: I10 Status: Chronic Plan: Pressure seems to be stable. Continue home antihypertensive medications which include metoprolol succinate 25 mg by mouth daily. (8) BPH (benign prostatic hyperplasia) ICD Code: N40.0 Status: Chronic Plan: Continue Flomax. seems stable AFIB- AMIO ASA DENIES COUMADIN GI prophylaxis: Continue PPI DVT prophylaxis: SCD's, Continue heparin SQ Discharge Planning Continue to monitor [facility] Estiven Toth MD Nov 22, 2016 12:32
[2016-11-22] MEDS: PANTOPRAZOLE SODIUM 40 MG VIAL IV PUSH SCH (12:47)
[2016-11-22] MEDS: AZITHROMYCIN INJ 500 MG in SODIUM CHLOR 0.9% 250 ML INJ 250 ML IV SCH (12:47)
[2016-11-22] MEDS: RESP: IPRATROPIUM 0.5 MG/2.5 ML NEB NEB SCH ×2 (14:30→19:52)
[2016-11-22] MEDS: BUDESONIDE-FORMOTEROL 160/4.5 MCG INHALER INH SCH (21:21)
[2016-11-23] VITALS (19 sets, daily range): BP systolic 128–156; BP diastolic 72–95; PULSE 56–83; RESP 20–22; TEMP 97.9–98.8; O2SAT 95–100
[2016-11-23] MEDS: DOCUSATE SODIUM 100 MG CAP PO SCH ×2 (02:06→13:00)
[2016-11-23] MEDS: HEPARIN SODIUM - SQ 10,000 UNITS/ML VIAL SQ SCH ×2 (02:06→13:49)
[2016-11-23] MEDS: CEFEPIME INJ 2,000 MG in SODIUM CHLORIDE 0.9% INJ 100 ML IV SCH ×3 (02:06→16:52)
[2016-11-23] MEDS: RESP: IPRATROPIUM 0.5 MG/2.5 ML NEB NEB SCH ×3 (07:37→20:37)
[2016-11-23] MEDS: METOPROLOL SUCCINATE 25 MG EXTENDED RELEASE TAB PO SCH (10:01)
[2016-11-23] MEDS: AMIODARONE 200 MG TAB PO SCH (10:01)
[2016-11-23] MEDS: LACTOBACILLUS ACIDOPHILUS TAB PO SCH ×2 (10:01→21:29)
[2016-11-23] MEDS: TAMSULOSIN HCL 0.4 MG CAP PO SCH (10:01)
[2016-11-23] MEDS: ASPIRIN EC 325 MG TABEC PO SCH (10:01)
[2016-11-23] MEDS: RAMIPRIL 5 MG CAP PO SCH (10:01)
[2016-11-23] MEDS: methylPREDNISolone SOD SUCC 40 MG/1 ML VIAL IV SCH ×2 (10:04→21:28)
[2016-11-23] MEDS: SODIUM CHLORIDE 0.9% FLUSH 5 ML FLUSH FLUSH SCH ×2 (10:05→21:28)
[2016-11-23] MEDS: BUDESONIDE-FORMOTEROL 160/4.5 MCG INHALER INH SCH ×2 (10:05→21:30)
--- NOTE | 2016-11-23 10:17 | PD.CARD.PN ---
Subjective Subjective Remarks Denies CP, palpitations, dizziness, PND. Dyspnea continues to improve. Objective Medications Item Value Date Time Amiodarone HCl 400 mg 11/21/16 1200 (Cordarone) Q12HR/PO 11/23/16 1001 Metoprolol 50 mg 11/21/16 0900 Succinate DAILY/PO 11/23/16 1001 (Toprol Xl) Aspirin 325 mg 11/20/16 1700 (Ecotrin Ec) DAILY/PO 11/23/16 1001 Ramipril 5 mg 11/17/16 0900 (Altace) DAILY/PO 11/23/16 1001 Heparin Sodium 5,000 units 11/16/16 1400 (Porcine) Q12H/SQ 11/23/16 0206 (Heparin Inj) Vital Signs / I&O Vital Signs Date Time Temp Pulse Resp B/P Pulse Ox O2 Delivery O2 Flow Rate FiO2 11/23/16 07:40 99 Nasal Cannula 3.00 11/23/16 07:40 99 11/23/16 04:00 98.8 60 20 156/95 100 11/23/16 04:00 60 11/23/16 00:00 68 11/23/16 00:00 98.6 68 20 128/72 96 11/22/16 22:20 93 BiPAP 3.00 11/22/16 20:00 98.4 68 18 142/78 93 11/22/16 20:00 68 11/22/16 19:55 98 Nasal Cannula 3.00 11/22/16 18:00 63 11/22/16 17:00 64 11/22/16 16:00 98.1 71 24 123/73 97 11/22/16 16:00 64 11/22/16 15:00 66 11/22/16 14:00 74 11/22/16 13:00 72 11/22/16 12:00 97.9 72 24 153/91 100 11/22/16 12:00 70 11/22/16 11:00 70 I/O 11/22/16 11/22/16 11/22/16 11/23/16 11/23/16 11/23/16 07:00 15:00 23:00 07:00 15:00 23:00 Intake Total 630 ml 1030 ml 480 ml Output Total 750 ml 800 ml 725 ml Balance -120 ml 230 ml -245 ml Intake Oral 480 ml 480 ml 480 ml IV Total 150 ml 550 ml Output Urine Total 750 ml 800 ml 725 ml # Bowel Movements 2 1 Physical Exam GENERAL: Well developed, well nourished. No acute distress. HEENT: Jugular venous pressure is normal. CHEST: Diminished breath sounds diffusely. Few rhonchi. CARDIAC: Regular rate and rhythm without S3, S4, or murmur. ABDOMEN: Soft, nontender, no hepatosplenomegaly. Bowel sounds present. EXTREMITIES: No clubbing, cyanosis, or edema. Assessment and Plan Problem List: (1) Paroxysmal atrial fibrillation Assessment and Plan: Remains in NSR. Tolerating Amiodarone. Continue oral Amiodarone and oral metoprolol, decrease Amiodarone dose to 400 mg qd. As noted , patient declines anticoagulation therapy, agrees to daily aspirin. (2) CAD (coronary artery disease) Assessment and Plan: History of occluded, collateralized LAD by cath years ago. Continue medical therapy. No recent angina. (3) HTN (hypertension) Assessment and Plan: Mildly elevated BP's. Add amlodipine. Code Status Alternative Code Discussed Condition With patient Problem Qualifiers (1) CAD (coronary artery disease): Qualified Code: I25.10 - Coronary artery disease involving [place] coronary artery of [place] heart without angina pectoris (2) HTN (hypertension): Qualified Code: I10 - Essential hypertension Hayden Mackey MD Nov 23, 2016 10:17
[2016-11-23] MEDS ORDERED: MISCELLANEOUS PHARMACY INFORMATION XX PRN (10:45)
[2016-11-23] MEDS ORDERED: ASP: Documented ESBL, MDR A baumannii or P. aeruginosa XX PRN (10:45)
--- NOTE | 2016-11-23 10:46 | HHI.PR ---
Addendum to Inpatient Note Additional Information GRAM STAIN Final 11/19/16 MUCUS PRESENT MANY WBC'S NO ORGANISMS SEEN SPUTUM CULTURE Preliminary 11/23/16 HEAVY GROWTH PSEUDO FLUORESCENS/PUTIDA HEAVY GROWTH POSSIBLE 2ND GRAM NEGATIVE LADONNA - FURTHER ID TO FOLLOW HEAVY GROWTH NORMAL RESPIRATORY [place] PS FLU/PUT M.I.C. RX --------- --- PIPERCILLIN/TAZOBACTAM >64 R CEFTRIAXONE >32 R CEFTAZIDIME >16 R CEFEPIME >16 R AZTREONAM >16 R IMIPENEM <1 S GENTAMICIN <4 S TOBRAMYCIN <4 S TETRACYCLINE >8 R TRIMETH/SULFA <2/38 S LEVOFLOXACIN <2 S PLAN: dc cefepime start Meropenem Iman Avendaño MD Nov 23, 2016 10:46
--- NOTE | 2016-11-23 12:43 | HHI.FPPN ---
Subjective Remarks C/O SOB C/O COUGH ID NOTE NOTED D/W RN LABS REVIEWED TELE REVIEWED Objective Vitals Vital Signs Date Time Temp Pulse Resp B/P Pulse Ox O2 Delivery O2 Flow Rate FiO2 11/23/16 07:40 99 Nasal Cannula 3.00 11/23/16 07:40 99 11/23/16 04:00 98.8 60 20 156/95 100 11/23/16 04:00 60 11/23/16 00:00 68 11/23/16 00:00 98.6 68 20 128/72 96 11/22/16 22:20 93 BiPAP 3.00 11/22/16 20:00 98.4 68 18 142/78 93 11/22/16 20:00 68 11/22/16 19:55 98 Nasal Cannula 3.00 11/22/16 18:00 63 11/22/16 17:00 64 11/22/16 16:00 98.1 71 24 123/73 97 11/22/16 16:00 64 11/22/16 15:00 66 11/22/16 14:00 74 11/22/16 13:00 72 I/O 11/22/16 11/22/16 11/22/16 11/23/16 11/23/16 11/23/16 07:00 15:00 23:00 07:00 15:00 23:00 Intake Total 630 ml 1030 ml 480 ml Output Total 750 ml 800 ml 725 ml Balance -120 ml 230 ml -245 ml Intake Oral 480 ml 480 ml 480 ml IV Total 150 ml 550 ml Output Urine Total 750 ml 800 ml 725 ml # Bowel Movements 2 1 Result Diagram: 11/22/1630 11/22/16 0530 Objective Remarks GENERAL: TACHYPNEIC, 1-2 WORD STATEMENTS SKIN: Warm and dry. HEAD: Atraumatic. Normocephalic. EYES: Pupils equal and round. No scleral icterus. No injection or drainage. ENT: No nasal bleeding or discharge. Mucous membranes pink and moist. NECK: Trachea midline. No JVD. CARDIOVASCULAR: Regular rate and rhythm. RESPIRATORY: B R/R, TACHYPNEIC, HARSH COUGH GASTROINTESTINAL: Abdomen soft, non-tender, nondistended. Hepatic and splenic margins not palpable. MUSCULOSKELETAL: Extremities without clubbing, cyanosis, or edema. No obvious deformities. NEUROLOGICAL: Awake and alert. No obvious cranial nerve deficits. Motor grossly within normal limits. 2 out of 5 muscle strength in the arms and legs. Normal speech. PSYCHIATRIC: Appropriate mood and affect; insight and judgment normal. Medications and IVs Current Medications Medications (Trade) Dose Ordered Sig/Mary Route Start Time Stop Time Status Last Admin (Tylenol) 650 mg Q4H PRN PO 11/16/16 12:15 11/20/16 21:46 (Altace) 5 mg DAILY PO 11/17/16 09:00 11/23/16 10:01 (Flomax) 0.4 mg DAILY PO 11/17/16 09:00 11/23/16 10:01 (NS Flush) 2 ml UNSCH PRN FLUSH 11/16/16 13:00 (NS Flush) 2 ml BID FLUSH 11/16/16 21:00 11/23/16 10:05 (Zofran Inj) 4 mg Q6H PRN IVP 11/16/16 13:00 (Colace) 100 mg Q12H PO 11/16/16 13:00 11/23/16 02:06 (Milk Of Magnesia Liq) 30 ml Q12H PRN PO 11/16/16 13:00 11/22/16 08:41 (Heparin Inj) 5,000 units Q12H SQ 11/16/16 14:00 11/23/16 02:06 Naloxone HCl 0.4 mg 0.4 mg UNSCH PRN IV 11/16/16 13:00 (Zithromax Inj/ NS 250 ml Inj) 250 ml @ 250 mls/hr Q24H IV 11/17/16 14:00 11/22/16 12:47 (Catapres) 0.1 mg Q6H PRN PO 11/16/16 13:00 (Protonix Inj) 40 mg Q24H IV PUSH 11/16/16 14:00 11/22/16 12:47 Miscellaneous Information Patient in critical care unit? Ass... Q361D XX 11/16/16 18:00 11/16/16 18:00 (Lactinex) 1 tab Q12HR PO 11/18/16 21:00 11/23/16 10:01 Metoprolol Tartrate 5 mg 5 mg Q5M PRN IV PUSH 11/20/16 12:30 11/20/16 12:45 (Maxipime Inj/NS Inj) 100 ml @ 200 mls/hr Q8H IV 11/20/16 17:00 11/23/16 09:00 (Toprol Xl) 50 mg DAILY PO 11/21/16 09:00 11/23/16 10:01 (Ecotrin Ec) 325 mg DAILY PO 11/20/16 17:00 11/23/16 10:01 (SoluMEDROL INJ) 30 mg BID IV 11/22/16 21:00 11/23/16 10:04 (Symbicort 160-4.5 Inh) 1 puff Q12HR INH 11/22/16 21:00 11/23/16 10:05 (Cordarone) 400 mg DAILY PO 11/24/16 09:00 Amlodipine Besylate 5 mg 5 mg DAILY PO 11/24/16 09:00 (Merrem Inj/NS Inj) 100 ml @ 200 mls/hr Q8H IV 11/23/16 13:00 A/P Assessment and Plan (1) Sepsis, RESOLVED ICD Code: A41.9 Status: Acute Plan: Due to COPD exacerbation and pneumonia. Patient admitted to the intensive care unit Blood cultures showing gram-positive cocci Sputum culture SHOWS PSEUDOMONAS ID CONSULT IV ABX IVF (2) Acute and chronic respiratory failure ICD Code: J96.20 Status: Acute Plan: Due to COPD exacerbation pneumonia. Chest x-ray on admission showed a stable chest x-ray with background changes suggestive of obstructive airways. Consolidation in the left lower lobe. Continue supplemental oxygen to keep oxygen saturation more than 92%. (3) COPD with acute exacerbation ICD Code: J44.1 Status: Acute Plan: IV solumedrol Pulmonary consulted - Dr Hernandez (4) PNA (pneumonia) ICD Code: J18.9 Status: Acute Plan: Likely community acquired pna - last hospitalization in 2014 Failed outpatient antibiotics Continue IV ABX Blood cultures growing gram-positive cocci Influenza ---> pending check strep pneumonia antigen and urine legionella antigen Follow-up ID and sensitivities. (5) Elevated lactic acid level ICD Code: R79.89 Status: Acute Plan: Secondary to sepsis, secondary to COPD exacerbation and pneumonia normal saline 100 ml/hr (6) Leukocytosis ICD Code: D72.829 Status: Acute Plan: Due to sepsis, secondary to COPD exacerbation and pneumonia. Continue to monitor CBC (7) HTN (hypertension) ICD Code: I10 Status: Chronic Plan: Pressure seems to be stable. Continue home antihypertensive medications which include metoprolol succinate 25 mg by mouth daily. (8) BPH (benign prostatic hyperplasia) ICD Code: N40.0 Status: Chronic Plan: Continue Flomax. seems stable AFIB- AMIO ASA DENIES COUMADIN GI prophylaxis: Continue PPI DVT prophylaxis: SCD's, Continue heparin SQ Discharge Planning Continue to monitor [facility] Estiven Toth MD Nov 23, 2016 12:43
[2016-11-23] MEDS: AZITHROMYCIN INJ 500 MG in SODIUM CHLOR 0.9% 250 ML INJ 250 ML IV SCH (13:49)
[2016-11-23] MEDS: PANTOPRAZOLE SODIUM 40 MG VIAL IV PUSH SCH (13:49)
[2016-11-23] MEDS: MEROPENEM INJ 1,000 MG in SODIUM CHLORIDE 0.9% INJ 100 ML IV SCH ×2 (14:58→21:28)
[2016-11-24] VITALS (26 sets, daily range): BP systolic 114–163; BP diastolic 66–93; PULSE 52–73; RESP 17–26; TEMP 97–98.4; O2SAT 94–98
[2016-11-24] MEDS: DOCUSATE SODIUM 100 MG CAP PO SCH ×3 (00:17→23:52)
[2016-11-24] MEDS: CEFEPIME INJ 2,000 MG in SODIUM CHLORIDE 0.9% INJ 100 ML IV SCH ×2 (00:17→08:02)
[2016-11-24] MEDS: HEPARIN SODIUM - SQ 10,000 UNITS/ML VIAL SQ SCH ×2 (02:01→13:53)
[2016-11-24] MEDS: RESP: ALBUTEROL 2.5 MG/IPRATROPIUM 0.5 MG NEB (PRN) NEB (03:35)
[2016-11-24] MEDS: MEROPENEM INJ 1,000 MG in SODIUM CHLORIDE 0.9% INJ 100 ML IV SCH ×3 (04:41→21:10)
[2016-11-24 06:53] LABS: BASOPHIL % 0.1 % (0.0-2.0); HEMATOCRIT 33.8 % (39.0-51.0); HEMO FLAGS DIFF FINAL; LYMPH % 1.7 % (9.0-44.0); LYMPHOCYTE # 0.1 TH/MM3 (1.0-4.8); MEAN CELL VOLUME 83.9 FL (80.0-100.0); MEAN CORPUSCULAR HEMOGLOBIN 26.8 PG (27.0-34.0); MEAN CORPUSCULAR HGB CONC 31.9 % (32.0-36.0); MONO % 5.5 % (0.0-8.0); NEUT % 92.7 % (16.0-70.0); PLATELET COUNT 196 TH/MM3 (150-450); RED BLOOD COUNT 4.03 MIL/MM3 (4.50-5.90); RED CELL DISTRIBUTION WIDTH 16.4 % (11.6-17.2); WHITE BLOOD COUNT 7.5 TH/MM3 (4.0-11.0)
[2016-11-24 07:10] LABS: BICARBONATE 31.1 MEQ/L (21.0-32.0); POTASSIUM 4.6 MEQ/L (3.5-5.1)
[2016-11-24] MEDS: RESP: IPRATROPIUM 0.5 MG/2.5 ML NEB NEB SCH ×2 (07:31→13:55)
[2016-11-24] MEDS: LACTOBACILLUS ACIDOPHILUS TAB PO SCH ×2 (08:01→21:10)
[2016-11-24] MEDS: ASPIRIN EC 325 MG TABEC PO SCH (08:01)
[2016-11-24] MEDS: RAMIPRIL 5 MG CAP PO SCH (08:01)
[2016-11-24] MEDS: METOPROLOL SUCCINATE 25 MG EXTENDED RELEASE TAB PO SCH (08:01)
[2016-11-24] MEDS: TAMSULOSIN HCL 0.4 MG CAP PO SCH (08:01)
[2016-11-24] MEDS: methylPREDNISolone SOD SUCC 40 MG/1 ML VIAL IV SCH (08:02)
[2016-11-24] MEDS: SODIUM CHLORIDE 0.9% FLUSH 5 ML FLUSH FLUSH SCH ×2 (08:03→21:11)
[2016-11-24] MEDS: BUDESONIDE-FORMOTEROL 160/4.5 MCG INHALER INH SCH ×2 (08:03→21:11)
[2016-11-24] MEDS ORDERED: amLODIPine BESYLATE 5 MG TAB PO SCH (09:00)
[2016-11-24] MEDS ORDERED: AMIODARONE 200 MG TAB PO SCH (09:00)
--- NOTE | 2016-11-24 09:29 | HHI.FPPN ---
Subjective Remarks C/O SOB C/O COUGH C/O MORE SPUTUM D/W RN Objective Vitals Vital Signs Date Time Temp Pulse Resp B/P Pulse Ox O2 Delivery O2 Flow Rate FiO2 11/24/16 07:32 95 Nasal Cannula 3.00 11/24/16 06:00 54 11/24/16 04:00 98.4 69 20 144/76 95 11/24/16 04:00 52 11/24/16 02:00 58 11/24/16 00:00 68 11/24/16 00:00 98.3 68 20 154/79 94 11/23/16 22:00 58 11/23/16 20:38 95 Nasal Cannula 3.00 11/23/16 20:00 63 11/23/16 20:00 98.5 63 20 153/81 96 11/23/16 18:08 57 11/23/16 17:00 83 11/23/16 16:47 97.9 70 22 139/74 96 11/23/16 16:00 65 11/23/16 15:00 65 11/23/16 14:00 63 11/23/16 13:00 68 11/23/16 12:00 62 11/23/16 11:00 79 11/23/16 10:00 66 11/23/16 10:00 98.3 69 20 155/83 97 I/O 11/23/16 11/23/16 11/23/16 11/24/16 11/24/16 11/24/16 07:00 15:00 23:00 07:00 15:00 23:00 Intake Total 480 ml 1150 ml 440 ml Output Total 725 ml 350 ml 700 ml Balance -245 ml 800 ml -260 ml Intake Oral 480 ml 600 ml 240 ml IV Total 550 ml 200 ml Output Urine Total 725 ml 350 ml 700 ml # Bowel Movements 1 0 Result Diagram: 11/24/1660011/24/16600 Objective Remarks GENERAL: TACHYPNEIC, 1-2 WORD STATEMENTS SKIN: Warm and dry. HEAD: Atraumatic. Normocephalic. EYES: Pupils equal and round. No scleral icterus. No injection or drainage. ENT: No nasal bleeding or discharge. Mucous membranes pink and moist. NECK: Trachea midline. No JVD. CARDIOVASCULAR: Regular rate and rhythm. RESPIRATORY: B R/R, TACHYPNEIC, HARSH COUGH GASTROINTESTINAL: Abdomen soft, non-tender, nondistended. Hepatic and splenic margins not palpable. MUSCULOSKELETAL: Extremities without clubbing, cyanosis, or edema. No obvious deformities. NEUROLOGICAL: Awake and alert. No obvious cranial nerve deficits. Motor grossly within normal limits. 2 out of 5 muscle strength in the arms and legs. Normal speech. PSYCHIATRIC: Appropriate mood and affect; insight and judgment normal. Medications and IVs Current Medications Medications (Trade) Dose Ordered Sig/Mary Route Start Time Stop Time Status Last Admin (Tylenol) 650 mg Q4H PRN PO 11/16/16 12:15 11/20/16 21:46 (Altace) 5 mg DAILY PO 11/17/16 09:00 11/24/16 08:01 (Flomax) 0.4 mg DAILY PO 11/17/16 09:00 11/24/16 08:01 (NS Flush) 2 ml UNSCH PRN FLUSH 11/16/16 13:00 (NS Flush) 2 ml BID FLUSH 11/16/16 21:00 11/24/16 08:03 (Zofran Inj) 4 mg Q6H PRN IVP 11/16/16 13:00 (Colace) 100 mg Q12H PO 11/16/16 13:00 11/23/16 02:06 (Milk Of Magnesia Liq) 30 ml Q12H PRN PO 11/16/16 13:00 11/22/16 08:41 (Heparin Inj) 5,000 units Q12H SQ 11/16/16 14:00 11/24/16 02:01 Naloxone HCl 0.4 mg 0.4 mg UNSCH PRN IV 11/16/16 13:00 (Zithromax Inj/ NS 250 ml Inj) 250 ml @ 250 mls/hr Q24H IV 11/17/16 14:00 11/23/16 13:49 (Catapres) 0.1 mg Q6H PRN PO 11/16/16 13:00 (Protonix Inj) 40 mg Q24H IV PUSH 11/16/16 14:00 11/23/16 13:49 Miscellaneous Information Patient in critical care unit? Ass... Q361D XX 11/16/16 18:00 11/16/16 18:00 (Lactinex) 1 tab Q12HR PO 11/18/16 21:00 11/24/16 08:01 Metoprolol Tartrate 5 mg 5 mg Q5M PRN IV PUSH 11/20/16 12:30 11/20/16 12:45 (Maxipime Inj/NS Inj) 100 ml @ 200 mls/hr Q8H IV 11/20/16 17:00 11/24/16 08:02 (Toprol Xl) 50 mg DAILY PO 11/21/16 09:00 11/24/16 08:01 (Ecotrin Ec) 325 mg DAILY PO 11/20/16 17:00 11/24/16 08:01 (Symbicort 160-4.5 Inh) 1 puff Q12HR INH 11/22/16 21:00 11/24/16 08:03 (Cordarone) 400 mg DAILY PO 11/24/16 09:00 11/24/16 08:01 Amlodipine Besylate 5 mg 5 mg DAILY PO 11/24/16 09:00 11/24/16 08:00 (Merrem Inj/NS Inj) 100 ml @ 200 mls/hr Q8H IV 11/23/16 13:00 11/24/16 04:41 (SoluMEDROL INJ) 40 mg DAILY IV 11/25/16 09:00 A/P Assessment and Plan (1) Sepsis, RESOLVED ICD Code: A41.9 Status: Acute Plan: Due to COPD exacerbation and pneumonia. Patient admitted to the intensive care unit Blood cultures showing gram-positive cocci Sputum culture SHOWS PSEUDOMONAS ID CONSULT IV ABX IVF (2) Acute and chronic respiratory failure ICD Code: J96.20 Status: Acute Plan: Due to COPD exacerbation pneumonia. Chest x-ray on admission showed a stable chest x-ray with background changes suggestive of obstructive airways. Consolidation in the left lower lobe. Continue supplemental oxygen to keep oxygen saturation more than 92%. TRIOLOGY HS AND PRN. HAS HIS HOME TRILOGY HERE. (3) COPD with acute exacerbation ICD Code: J44.1 Status: Acute Plan: IV solumedrol Pulmonary consulted - Dr Hernandez (4) PNA (pneumonia) ICD Code: J18.9 Status: Acute Plan: Likely community acquired pna - last hospitalization in 2013 Failed outpatient antibiotics Continue IV ABX Blood cultures growing gram-positive cocci Influenza NEG check strep pneumonia antigen and urine legionella antigen Follow-up ID and sensitivities. (5) Elevated lactic acid level ICD Code: R79.89 Status: Acute Plan: Secondary to sepsis, secondary to COPD exacerbation and pneumonia normal saline 100 ml/hr (6) Leukocytosis ICD Code: D72.829 Status: Acute Plan: Due to sepsis, secondary to COPD exacerbation and pneumonia. Continue to monitor CBC (7) HTN (hypertension) ICD Code: I10 Status: Chronic Plan: Pressure seems to be stable. Continue home antihypertensive medications which include metoprolol succinate 25 mg by mouth daily. (8) BPH (benign prostatic hyperplasia) ICD Code: N40.0 Status: Chronic Plan: Continue Flomax. seems stable AFIB- AMIO ASA DENIES COUMADIN GI prophylaxis: Continue PPI DVT prophylaxis: SCD's, Continue heparin SQ Discharge Planning Continue to monitor [facility] Estiven Toth MD Nov 24, 2016 09:29
--- NOTE | 2016-11-24 09:29 | PD.CARD.PN ---
Subjective Subjective Remarks "Very tired". Denies dyspnea, CP, dizziness, palpitations, nausea. Objective Medications Item Value Date Time Amiodarone HCl 400 mg 11/24/16 0900 (Cordarone) DAILY/PO 11/24/16 0801 Amlodipine 5 mg 11/24/16 0900 Besylate DAILY/PO 11/24/16 0800 (Norvasc) Metoprolol 50 mg 11/21/16 0900 Succinate DAILY/PO 11/24/16 08 (Toprol Xl) Aspirin 325 mg 11/20/16 1700 (Ecotrin Ec) DAILY/PO 11/24/16 0801 Ramipril 5 mg 11/17/16 0900 (Altace) DAILY/PO 11/24/16 0801 Heparin Sodium 5,000 units 11/16/16 1400 (Porcine) Q12H/SQ 11/24/16 0201 (Heparin Inj) Vital Signs / I&O Vital Signs Date Time Temp Pulse Resp B/P Pulse Ox O2 Delivery O2 Flow Rate FiO2 11/24/16 07:32 95 Nasal Cannula 3.00 11/24/16 06:00 54 11/24/16 04:00 98.4 69 20 144/76 95 11/24/16 04:00 52 11/24/16 02:00 58 11/24/16 00:00 68 11/24/16 00:00 98.3 68 20 154/79 94 11/23/16 22:00 58 11/23/16 20:38 95 Nasal Cannula 3.00 11/23/16 20:00 63 11/23/16 20:00 98.5 63 20 153/81 96 11/23/16 18:08 57 11/23/16 17:00 83 11/23/16 16:47 97.9 70 22 139/74 96 11/23/16 16:00 65 11/23/16 15:00 65 11/23/16 14:00 63 11/23/16 13:00 68 11/23/16 12:00 62 11/23/16 11:00 79 11/23/16 10:00 66 11/23/16 10:00 98.3 69 20 155/83 97 I/O 2/28/17 2/28/17 2/28/17 3/1/17 3/1/17 3/1/17 07:00 15:00 23:00 07:00 15:00 23:00 Intake Total 480 ml 1150 ml 440 ml Output Total 725 ml 350 ml 700 ml Balance -245 ml 800 ml -260 ml Intake Oral 480 ml 600 ml 240 ml IV Total 550 ml 200 ml Output Urine Total 725 ml 350 ml 700 ml # Bowel Movements 1 0 Physical Exam GENERAL: Well developed, well nourished. No acute distress. HEENT: Jugular venous pressure is normal. CHEST: Diminished breath sounds diffusely. . CARDIAC: Regular rate and rhythm without S3, S4, or murmur. ABDOMEN: Soft, nontender, no hepatosplenomegaly. Bowel sounds present. EXTREMITIES: No clubbing, cyanosis, or edema. Laboratory Laboratory Tests Test 11/24/16 06:01 White Blood Count 7.5 TH/MM3 Red Blood Count 4.03 MIL/MM3 Hemoglobin 10.8 GM/DL Hematocrit 33.8 % Mean Corpuscular Volume 83.9 FL Mean Corpuscular Hemoglobin 26.8 PG Mean Corpuscular Hemoglobin 31.9 % Concent Red Cell Distribution Width 16.4 % Platelet Count 196 TH/MM3 Mean Platelet Volume 8.5 FL Neutrophils (%) (Auto) 92.7 % Lymphocytes (%) (Auto) 1.7 % Monocytes (%) (Auto) 5.5 % Eosinophils (%) (Auto) 0.0 % Basophils (%) (Auto) 0.1 % Neutrophils # (Auto) 7.0 TH/MM3 Lymphocytes # (Auto) 0.1 TH/MM3 Monocytes # (Auto) 0.4 TH/MM3 Eosinophils # (Auto) 0.0 TH/MM3 Basophils # (Auto) 0.0 TH/MM3 CBC Comment DIFF FINAL Differential Comment Sodium Level 140 MEQ/L Potassium Level 4.6 MEQ/L Chloride Level 103 MEQ/L Carbon Dioxide Level 31.1 MEQ/L Anion Gap 6 MEQ/L Blood Urea Nitrogen 26 MG/DL Creatinine 0.76 MG/DL Estimat Glomerular Filtration 98 ML/MIN Rate Random Glucose 104 MG/DL Calcium Level 7.7 MG/DL Assessment and Plan Problem List: (1) Paroxysmal atrial fibrillation Assessment and Plan: Remains in NSR. Tolerating Amiodarone. Continue oral Amiodarone and oral metoprolol, decrease Amiodarone dose to 200 mg qd. As noted , patient declines anticoagulation therapy, agrees to daily aspirin. Will f/u as needed rest of hospital stay. I can f/u him up in the office after discharge. (2) CAD (coronary artery disease) Assessment and Plan: History of occluded, collateralized LAD by cath years ago. Continue medical therapy. No recent angina. (3) HTN (hypertension) Assessment and Plan: Mildly elevated BP's. Increase amlodipine. Code Status alternative code Discussed Condition With patient Problem Qualifiers (1) CAD (coronary artery disease): Qualified Code: I25.10 - Coronary artery disease involving [place] coronary artery of [place] heart without angina pectoris (2) HTN (hypertension): Qualified Code: I10 - Essential hypertension Hayden Mackey MD Nov 24, 2016 09:29
--- NOTE | 2016-11-24 09:36 | RADRPT ---
EXAM DATE/TIME: 11/24/2016 09:03 [facility] COMPARISON: CHEST SINGLE AP, November 20, 2016, 13:00. INDICATIONS : Pneumonia. MEDICAL HISTORY : Hypertension. Chronic obstructive pulmonary disease. SURGICAL HISTORY : None. ENCOUNTER: Initial ACUITY: 2 days PAIN SCORE: 0/10 LOCATION: Bilateral chest FINDINGS: A single view of the chest demonstrates bibasilar densities. Probable small left pleural effusion. He art normal in size. There is hyperinflation. Osseous structures are intact. CONCLUSION: 1. Bibasilar densities greater in the left lower lobe likely infiltrates. 2. Small left pleural effusion. Mark Naik MD on November 24, 2016 at 9:33 Board Certified Radiologist. This report was verified electronically.
[2016-11-24] MEDS: AZITHROMYCIN INJ 500 MG in SODIUM CHLOR 0.9% 250 ML INJ 250 ML IV SCH (13:53)
[2016-11-24] MEDS: PANTOPRAZOLE SODIUM 40 MG VIAL IV PUSH SCH (13:54)
--- NOTE | 2016-11-24 17:16 | HHI.IDPN ---
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 Vital Signs Date Time Temp Pulse Resp B/P Pulse Ox O2 Delivery O2 Flow Rate FiO2 11/24/16 16:01 60 11/24/16 16:01 97.9 64 24 114/66 95 11/24/16 15:00 73 11/24/16 14:01 68 11/24/16 13:00 68 11/24/16 12:01 97.5 68 26 150/85 95 11/24/16 12:01 64 11/24/16 11:00 64 11/24/16 10:01 68 11/24/16 09:00 72 11/24/16 08:01 98.3 72 24 163/89 96 11/24/16 08:00 72 11/24/16 07:32 95 Nasal Cannula 3.00 11/24/16 07:00 56 11/24/16 06:00 54 11/24/16 04:00 98.4 69 20 144/76 95 11/24/16 04:00 52 11/24/16 02:00 58 11/24/16 00:00 68 11/24/16 00:00 98.3 68 20 154/79 94 11/23/16 22:00 58 11/23/16 20:38 95 Nasal Cannula 3.00 11/23/16 20:00 63 11/23/16 20:00 98.5 63 20 153/81 96 11/23/16 18:08 57 11/23/16 11/23/16 11/24/16 15:00 23:00 07:00 Intake Total 1150 ml 440 ml Output Total 350 ml 700 ml Balance 800 ml -260 ml Intake Oral 600 ml 240 ml IV Total 550 ml 200 ml Output Urine Total 350 ml 700 ml # Bowel Movements 0 . GRAM STAIN Final 11/19/16 MUCUS PRESENT MANY WBC'S NO ORGANISMS SEEN SPUTUM CULTURE Preliminary 11/23/16-902 HEAVY GROWTH PSEUDO FLUORESCENS/PUTIDA HEAVY GROWTH POSSIBLE 2ND GRAM NEGATIVE LADONNA - FURTHER ID TO FOLLOW HEAVY GROWTH NORMAL RESPIRATORY ISRRAEL PS FLU/PUT M.I.C. RX --------- --- PIPERCILLIN/TAZOBACTAM >64 R CEFTRIAXONE >32 R CEFTAZIDIME >16 R CEFEPIME >16 R AZTREONAM >16 R IMIPENEM <1 S GENTAMICIN <4 S TOBRAMYCIN <4 S TETRACYCLINE >8 R TRIMETH/SULFA <2/38 S LEVOFLOXACIN <2 S Laboratory Tests Test 11/24/16 06:01 White Blood Count 7.5 TH/MM3 Red Blood Count 4.03 MIL/MM3 Hemoglobin 10.8 GM/DL Hematocrit 33.8 % Mean Corpuscular Volume 83.9 FL Mean Corpuscular Hemoglobin 26.8 PG Mean Corpuscular Hemoglobin 31.9 % Concent Red Cell Distribution Width 16.4 % Platelet Count 196 TH/MM3 Mean Platelet Volume 8.5 FL Neutrophils (%) (Auto) 92.7 % Lymphocytes (%) (Auto) 1.7 % Monocytes (%) (Auto) 5.5 % Eosinophils (%) (Auto) 0.0 % Basophils (%) (Auto) 0.1 % Neutrophils # (Auto) 7.0 TH/MM3 Lymphocytes # (Auto) 0.1 TH/MM3 Monocytes # (Auto) 0.4 TH/MM3 Eosinophils # (Auto) 0.0 TH/MM3 Basophils # (Auto) 0.0 TH/MM3 CBC Comment DIFF FINAL Differential Comment Laboratory Tests Test 11/24/16 06:01 Sodium Level 140 MEQ/L Potassium Level 4.6 MEQ/L Chloride Level 103 MEQ/L Carbon Dioxide Level 31.1 MEQ/L Anion Gap 6 MEQ/L Blood Urea Nitrogen 26 MG/DL Creatinine 0.76 MG/DL Estimat Glomerular Filtration 98 ML/MIN Rate Random Glucose 104 MG/DL Calcium Level 7.7 MG/DL Imaging Last Impressions Chest X-Ray 11/24/16 0000 Signed Impressions: Service Date/Time: Thursday, November 24, 2016 09:03 - CONCLUSION: 1. Bibasilar densities greater in the left lower lobe likely infiltrates. 2. Small left pleural effusion. Mark Naik MD Physical Exam CONSTITUTIONAL/GENERAL: This is an adequately nourished patient, in no apparent distress. TUBES/LINES/DRAINS: SKIN: No jaundice, rashes, or lesions. Skin temperature appropriate. Not diaphoretic. HEAD: Atraumatic. Normocephalic. EYES: Pupils equal and round and reactive. Extraocular motions intact. No scleral icterus. No injection or drainage. Fundi not examined. ENT: Hearing grossly normal. Nose without bleeding or purulent drainage. Oral mucosae without visible erythema, exudates, masses, or lesions. NECK: Trachea midline. Supple, nontender. No palpable thyroid enlargement or nodularity. CARDIOVASCULAR: Regular rate and rhythm without murmurs, gallops, or rubs. No JVD. Peripheral pulses symmetric. RESPIRATORY/CHEST: Symmetric, unlabored respirations. Few rhonchi auscultation. Breath sounds diminished bilaterally. GASTROINTESTINAL: Abdomen soft, non-tender, nondistended. No hepato-splenomegaly , or palpable masses. No guarding. Bowel sounds present. GENITOURINARY: Without palpable bladder distension. MUSCULOSKELETAL: Extremities without clubbing, cyanosis, or edema. No joint tenderness or effusion noted. No calf tenderness. No mottling or clubbing. LYMPHATICS: No palpable cervical or supraclavicular adenopathy. NEUROLOGICAL: Awake and alert. Motor and sensory grossly within normal limits. Follows commands. Cognitively sharp. Moves all extremities. PSYCHIATRIC: No obvious anxiety/depression. no apparent hallucinations or other psychotic thought process. Assessment & Plan Remarks PNA , LLL , community acquired - growing PSEUDO FLUORESCENS/PUTIDA and 2nd GNB yet to be id'd clincailly improving with current tx - neg flu AG Viridans strepo bacteremia, low grade - no clinical significance; cw contamination - repeat blood clx negative - dc azithro - dc ecefepime - cont meropenm - fu 2nd GNB ID an S - ro influenza - fu blood clx untill final Iman Avendaño MD Nov 24, 2016 17:16
[2016-11-24] MEDS: ACETAMINOPHEN 325 MG TAB PO PRN (23:52)
[2016-11-25] VITALS (21 sets, daily range): BP systolic 135–158; BP diastolic 69–93; PULSE 51–76; RESP 18–20; TEMP 97–98.2; O2SAT 93–97
[2016-11-25] MEDS: HEPARIN SODIUM - SQ 10,000 UNITS/ML VIAL SQ SCH ×2 (03:36→15:01)
[2016-11-25] MEDS: MEROPENEM INJ 1,000 MG in SODIUM CHLORIDE 0.9% INJ 100 ML IV SCH (05:37)
[2016-11-25 06:37] LABS: AUTOMATED NEUTROPHIL # 6.2 TH/MM3 (1.8-7.7); EOSINOPHIL # 0.1 TH/MM3 (0-0.4); EOSINOPHIL % 1.5 % (0.0-4.0); HEMATOCRIT 31.5 % (39.0-51.0); HEMO FLAGS DIFF FINAL; LYMPHOCYTE # 0.5 TH/MM3 (1.0-4.8); MEAN CELL VOLUME 82.8 FL (80.0-100.0); MEAN CORPUSCULAR HEMOGLOBIN 27.7 PG (27.0-34.0); MEAN CORPUSCULAR HGB CONC 33.4 % (32.0-36.0); MONO % 12.2 % (0.0-8.0); NEUT % 80.3 % (16.0-70.0); PLATELET COUNT 192 TH/MM3 (150-450); RED BLOOD COUNT 3.81 MIL/MM3 (4.50-5.90); WHITE BLOOD COUNT 7.8 TH/MM3 (4.0-11.0)
[2016-11-25 06:49] LABS: BICARBONATE 30.6 MEQ/L (21.0-32.0); POTASSIUM 4.1 MEQ/L (3.5-5.1)
[2016-11-25] MEDS: RESP: IPRATROPIUM 0.5 MG/2.5 ML NEB NEB SCH ×2 (07:27→11:42)
[2016-11-25] MEDS: SODIUM CHLORIDE 0.9% FLUSH 5 ML FLUSH FLUSH SCH (08:10)
[2016-11-25] MEDS: TAMSULOSIN HCL 0.4 MG CAP PO SCH (08:10)
[2016-11-25] MEDS: ASPIRIN EC 325 MG TABEC PO SCH (08:11)
[2016-11-25] MEDS: LACTOBACILLUS ACIDOPHILUS TAB PO SCH (08:11)
[2016-11-25] MEDS: RAMIPRIL 5 MG CAP PO SCH (08:11)
[2016-11-25] MEDS: METOPROLOL SUCCINATE 25 MG EXTENDED RELEASE TAB PO SCH (08:11)
[2016-11-25] MEDS: BUDESONIDE-FORMOTEROL 160/4.5 MCG INHALER INH SCH (08:12)
[2016-11-25] MEDS ORDERED: methylPREDNISolone SOD SUCC 40 MG/1 ML VIAL IV SCH (09:00)
[2016-11-25] MEDS ORDERED: AMIODARONE 200 MG TAB PO SCH (09:00)
--- NOTE | 2016-11-25 12:32 | HHI.FPPN ---
Subjective Remarks CONF W PT AND PT AGITATED PT WANTING TO GIVE UP D/W RN Objective Vitals Vital Signs Date Time Temp Pulse Resp B/P Pulse Ox O2 Delivery O2 Flow Rate FiO2 11/25/16 12:00 64 11/25/16 11:00 98.0 65 18 142/74 95 11/25/16 11:00 62 11/25/16 10:00 76 11/25/16 09:00 64 11/25/16 08:00 69 11/25/16 07:26 96 Nasal Cannula 3.00 11/25/16 07:00 57 11/25/16 07:00 98.2 63 20 140/69 97 11/25/16 06:00 55 11/25/16 05:00 53 11/25/16 04:00 97.7 61 18 145/77 96 11/25/16 04:00 51 11/25/16 03:33 97.7 61 18 145/77 96 11/25/16 03:00 51 11/25/16 02:04 51 11/25/16 01:00 58 11/25/16 00:00 52 11/25/16 00:00 97.0 65 18 158/93 95 11/24/16 23:46 97.0 65 17 158/93 95 11/24/16 23:00 53 11/24/16 22:00 54 11/24/16 21:00 54 11/24/16 20:00 97.0 65 20 159/79 94 11/24/16 20:00 62 11/24/16 19:00 67 11/24/16 18:01 62 11/24/16 17:19 98 Nasal Cannula 3.00 11/24/16 17:00 58 11/24/16 16:01 60 11/24/16 16:01 97.9 64 24 114/66 95 11/24/16 15:00 73 11/24/16 14:01 68 11/24/16 13:00 68 I/O 11/24/16 11/24/16 11/24/16 11/25/16 11/25/16 11/25/16 07:00 15:00 23:00 07:00 15:00 23:00 Intake Total 440 ml 930 ml 340 ml Output Total 700 ml 150 ml 125 ml 500 ml Balance -260 ml -150 ml 805 ml -160 ml Intake Oral 240 ml 480 ml 240 ml IV Total 200 ml 450 ml 100 ml Output Urine Total 700 ml 150 ml 125 ml 500 ml # Bowel Movements 0 0 Result Diagram: 11/25/1637 11/25/16536 Objective Remarks GENERAL: TACHYPNEIC, 1-2 WORD STATEMENTS SKIN: Warm and dry. HEAD: Atraumatic. Normocephalic. EYES: Pupils equal and round. No scleral icterus. No injection or drainage. ENT: No nasal bleeding or discharge. Mucous membranes pink and moist. NECK: Trachea midline. No JVD. CARDIOVASCULAR: Regular rate and rhythm. RESPIRATORY: B R/R, TACHYPNEIC, HARSH COUGH GASTROINTESTINAL: Abdomen soft, non-tender, nondistended. Hepatic and splenic margins not palpable. MUSCULOSKELETAL: Extremities without clubbing, cyanosis, or edema. No obvious deformities. NEUROLOGICAL: Awake and alert. No obvious cranial nerve deficits. Motor grossly within normal limits. 2 out of 5 muscle strength in the arms and legs. Normal speech. PSYCHIATRIC: Appropriate mood and affect; insight and judgment normal. Medications and IVs Current Medications Medications (Trade) Dose Ordered Sig/Mary Route Start Time Stop Time Status Last Admin (Tylenol) 650 mg Q4H PRN PO 11/16/16 12:15 11/24/16 23:52 (Altace) 5 mg DAILY PO 11/17/16 09:00 11/25/16 08:11 (Flomax) 0.4 mg DAILY PO 11/17/16 09:00 11/25/16 08:10 (NS Flush) 2 ml UNSCH PRN FLUSH 11/16/16 13:00 (NS Flush) 2 ml BID FLUSH 11/16/16 21:00 11/25/16 08:10 (Zofran Inj) 4 mg Q6H PRN IVP 11/16/16 13:00 (Colace) 100 mg Q12H PO 11/16/16 13:00 11/24/16 23:52 (Milk Of Magnesia Liq) 30 ml Q12H PRN PO 11/16/16 13:00 11/22/16 08:41 (Heparin Inj) 5,000 units Q12H SQ 11/16/16 14:00 11/25/16 03:36 (Narcan Inj) 0.4 mg UNSCH PRN IV 11/16/16 13:00 (Catapres) 0.1 mg Q6H PRN PO 11/16/16 13:00 (Protonix Inj) 40 mg Q24H IV PUSH 11/16/16 14:00 11/24/16 13:54 Miscellaneous Information Patient in critical care unit? Ass... [id number] XX 11/16/16 18:00 11/16/16 18:00 (Lactinex) 1 tab Q12HR PO 11/18/16 21:00 11/25/16 08:11 (Lopressor Inj) 5 mg Q5M PRN IV PUSH 11/20/16 12:30 11/20/16 12:45 (Toprol Xl) 50 mg DAILY PO 11/21/16 09:00 11/25/16 08:11 (Ecotrin Ec) 325 mg DAILY PO 11/20/16 17:00 11/25/16 08:11 Budesonide/ Formoterol Fumarate 1 puff 1 puff Q12HR INH 11/22/16 21:00 11/25/16 08:12 (Merrem Inj/NS Inj) 100 ml @ 200 mls/hr Q8H IV 11/23/16 13:00 11/25/16 05:37 (SoluMEDROL INJ) 40 mg DAILY IV 11/25/16 09:00 11/25/16 08:09 (Norvasc) 10 mg DAILY PO 11/25/16 09:00 11/25/16 08:10 (Cordarone) 200 mg DAILY PO 11/25/16 09:00 11/25/16 08:11 A/P Assessment and Plan (1) Sepsis, RESOLVED ICD Code: A41.9 Status: Acute Plan: Due to COPD exacerbation and pneumonia. Patient admitted to the intensive care unit Blood cultures showing gram-positive cocci Sputum culture SHOWS PSEUDOMONAS ID CONSULT IV ABX IVF (2) Acute and chronic respiratory failure ICD Code: J96.20 Status: Acute Plan: Due to COPD exacerbation pneumonia. Chest x-ray on admission showed a stable chest x-ray with background changes suggestive of obstructive airways. Consolidation in the left lower lobe. Continue supplemental oxygen to keep oxygen saturation more than 92%. TRIOLOGY HS AND PRN. HAS HIS HOME TRILOGY HERE. (3) COPD with acute exacerbation ICD Code: J44.1 Status: Acute Plan: IV solumedrol Pulmonary consulted - Dr Hernandez (4) PNA (pneumonia) ICD Code: J18.9 Status: Acute Plan: Likely community acquired pna - last hospitalization in 2013 Failed outpatient antibiotics Continue IV ABX Blood cultures growing gram-positive cocci Influenza NEG check strep pneumonia antigen and urine legionella antigen Follow-up ID and sensitivities. (5) Elevated lactic acid level ICD Code: R79.89 Status: Acute Plan: Secondary to sepsis, secondary to COPD exacerbation and pneumonia normal saline 100 ml/hr (6) Leukocytosis ICD Code: D72.829 Status: Acute Plan: Due to sepsis, secondary to COPD exacerbation and pneumonia. Continue to monitor CBC (7) HTN (hypertension) ICD Code: I10 Status: Chronic Plan: Pressure seems to be stable. Continue home antihypertensive medications which include metoprolol succinate 25 mg by mouth daily. (8) BPH (benign prostatic hyperplasia) ICD Code: N40.0 Status: Chronic Plan: Continue Flomax. seems stable AFIB- AMIO ASA DENIES COUMADIN GI prophylaxis: Continue PPI DVT prophylaxis: SCD's, Continue heparin SQ Discharge Planning Appears he may want palliation. Estiven Toth MD Nov 25, 2016 12:31
[2016-11-25] MEDS: DOCUSATE SODIUM 100 MG CAP PO SCH (13:00)
[2016-11-25] MEDS ORDERED: LORazepam 2 MG/ML VIAL IV PUSH PRN (14:00)
[2016-11-25] MEDS ORDERED: MORPHINE SULFATE 4 MG/ML INJ IV PUSH PRN (14:00)
[2016-11-25] MEDS: PANTOPRAZOLE SODIUM 40 MG VIAL IV PUSH SCH (15:01)
--- NOTE | 2016-11-25 15:11 | PD.CONS ---
Consult Service Palliative Care Consult Requested By Dr. Genaro Hernandez MD. Primary Care Physician Shun Vyas MD Reason for Consultation a. To assist with evaluation and management of symptoms including: shortness of breath and debility. b. To assist medical decision maker(s) with: better understanding of current medical conditions; weighing benefits/burdens of medical treatment options; making medical treatment decisions. . HPI History of Present Illness Mr. Duff is an 81-year-old male with a medical history of COPD, O2 dependent, atrial fibrillation, anxiety, CAD, dyslipidemia, hypertension, nephrolithiasis. Patient presented to the emergency room via EMS on 11/16/16 reporting increase shortness of breath. While en route, patient was given albuterol treatment on Solu-Medrol with moderate effect. Chest x-ray showing lung changes suggestive of obstructive airway disease and stable atelectasis versus consolidation in the left lower lobe. ED labs with CBC 13.7, Hgb 11.8. Lactic acid 2.2. BNP 33. BUN/creatinine 22/1.11. Patient was placed on BiPAP and admitted for acute COPD exacerbation. Review medical records. Last hospitalization in July 2014 secondary to COPD exacerbation. Mr. Duff is a patient of Dr. Hernandez -outpatient, originally diagnosed with COPD 19 years ago. Patient tells me that he has a history of frequent COPD exacerbation secondary to lung infections. Chronic antibiotic use with rotation. He reports recently being treated for fungal lung infection. Blood culture 11/16/16 positive for viridans Streptococcus Grp. Infectious disease - Dr. Avendaño consulted on 11/19/16 for gram-positive sepsis. Patient was continued on antibiotic. Patient using Trilogy CPAP at home, mainly at bedtime and when necessary. Cardiology -Dr. Mackey consulted on 11/20/16 for atrial fibrillation with RVR. Patient asymptomatic. No anticoagulation therapy recommended at this time. Patient clinical condition continued to worsen, with increased oxygen requirement and very symptomatic. History of failed outpatient antibiotics. Influenza negative. Pulmonary -Dr. Hernandez consulted. After further discussion with attending and Dr. hernandez, patient requesting to transition to comfort directed care for symptom management/improved quality of life. Palliative care has been consulted to assist with goals of care given patient's worsening clinical condition and stated wishes. Patient seen in his room. Awake, alert 3, verbal and able to communicate needs. Limited speech 2-3 words secondary to shortness of breath. Chest x-ray today showing bibasilar densities grater in the left lower lobe likely infiltrates and small left pleural effusion. Laboratory today WBC 7.8, Hgb 10.5 , platelet 190. Sodium 139, potassium 4.1, BUN/creatinine 22/0.64. Albumin 2.6. Patient endorsing shortness of breath at rest and on minimal exertion. Taking frequent process in between sentences. Patient tells me that prior to this hospitalization he was residing independently with his . Reports frequent COPD exacerbations with infections. Chronic antibiotic use. O2 and CPAP dependent at home. Patient tells me that the original plan was to discharge to rehabilitation. However, after participating in physical therapy yesterday he realized that physical therapy in his current clinical condition would exacerbate his symptoms and worsen his quality of life. Patient electing to transition to comfort directed care with hospice given his increased symptoms burden and poor prognosis for meaningful recovery. Patient tells me that his is fully supported with this decision. caring at bedside. Verbalize support of patient's goal of care. . Function/Cognitive Trajectory Patient residing independently prior to his hospitalization. Using walker intermittently. Mostly independent with all ADLs. No cognitive decline reported. . Review of Systems Constitutional: COMPLAINS OF: Fatigue, Change in appetite, Generalized weakness Endocrine: DENIES: Heat/cold intolerance Eyes: COMPLAINS OF: Blurred vision Ears, nose, mouth, throat: DENIES: Hearing loss, Throat pain Respiratory: COMPLAINS OF: Cough, Sputum production, Shortness of breath Cardiovascular: COMPLAINS OF: Dyspnea on Exertion, DENIES: Chest pain Gastrointestinal: DENIES: Abdominal pain, Constipation, Diarrhea, Nausea Genitourinary: DENIES: Urinary frequency Musculoskeletal: COMPLAINS OF: Stiffness Integumentary: DENIES: Abnormal pigmentation Hematologic/Lymphatics: COMPLAINS OF: Bruising Immunologic/Allergic: DENIES: Eczema Neurologic: COMPLAINS OF: Abnormal gait Psychiatric: DENIES: Anxiety, Confusion, Agitation Past Family Social History Coded Allergies: Avelox (Verified Allergy, Severe, 08/25/14) Cipro (Verified Allergy, Severe, 08/25/14) Latex (Verified Allergy, Severe, 08/25/14) Levaquin (Verified Allergy, Severe, 08/25/14) Lortab (Verified Allergy, Severe, Hallucinations, 11/16/16) Xanax (Verified Allergy, Severe, Hallucinations, 11/16/16) *MDRO Multi-Drug Resistant Organism (Verified Allergy, Unknown, 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 Basilar bronchiectasis Hypertension CAD, status post cardiac catheter in 2006 Abdominal aortic aneurysm s/p repair in 2006 Hyperlipidemia . Past Surgical History AAA endovascular repair in 2006 Bilateral cataract surgery Right Achilles tendon repair in 2007 Thyroglossal cyst excision Reported Medications Oxygen (O2) (Miscellaneous Medication) Inha 3 L INH Deltasone (Prednisone) 1 Mg Tab 3 Mg PO DAILY Advair Diskus 250/50 (Salmeterol Xinafoate/Fluticasone) 250 Mcg/50 Mcg Inhp 1 Puff INH BID Aspirin Ec 325 mg (Aspirin) 325 Mg Tab 325 Mg PO DAILY Flomax (Tamsulosin HCl) 0.4 Mg Cap 0.4 Mg PO DAILY Fortical (Calcitonin Sumner) 200 Mg/Act Spr 200 Mg NA DAILY Resp: Albuterol 2.5 Mg/Ipratropium 0.5 Mg (Albuterol/Ipratropium) 1 Amp Nebu 1 Amp NEB QIDPRN Altace (Ramipril) 5 Mg Cap 5 Mg PO DAILY Caltrate 600 (Calcium Carbonate) Tab 1 Tab PO Spiriva Handihaler (Tiotropium Coleraine) 18 Mcg Cap 1 Dose INH DAILY Mag-Ox 400 (Magnesium Oxide) 400 Mg Tab 400 Mg PO QID Prilosec Otc (Omeprazole Magnesium) 20 Mg Tab 20 Mg PO DAILY Lipitor (Atorvastatin Calcium) 40 Mg Tab 40 Mg PO DAILY Toprol Xl (Metoprolol Succinate) 25 Mg Tabcr 25 Mg PO D . Current Medications Medications (Trade) Dose Ordered Sig/Mary Route Start Time Stop Time Status Last Admin (Tylenol) 650 mg Q4H PRN PO 11/16/16 12:15 11/24/16 23:52 (Altace) 5 mg DAILY PO 11/17/16 09:00 11/25/16 08:11 (Flomax) 0.4 mg DAILY PO 11/17/16 09:00 11/25/16 08:10 (NS Flush) 2 ml UNSCH PRN FLUSH 11/16/16 13:00 (NS Flush) 2 ml BID FLUSH 11/16/16 21:00 11/25/16 08:10 (Zofran Inj) 4 mg Q6H PRN IVP 11/16/16 13:00 (Colace) 100 mg Q12H PO 11/16/16 13:00 11/24/16 23:52 (Milk Of Magnesia Liq) 30 ml Q12H PRN PO 11/16/16 13:00 11/22/16 08:41 (Heparin Inj) 5,000 units Q12H SQ 11/16/16 14:00 11/25/16 03:36 (Narcan Inj) 0.4 mg UNSCH PRN IV 11/16/16 13:00 (Catapres) 0.1 mg Q6H PRN PO 11/16/16 13:00 (Protonix Inj) 40 mg Q24H IV PUSH 11/16/16 14:00 11/24/16 13:54 Miscellaneous Information Patient in critical care unit? Ass... Q361D XX 11/16/16 18:00 11/16/16 18:00 (Lactinex) 1 tab Q12HR PO 11/18/16 21:00 11/25/16 08:11 (Lopressor Inj) 5 mg Q5M PRN IV PUSH 11/20/16 12:30 11/20/16 12:45 (Toprol Xl) 50 mg DAILY PO 11/21/16 09:00 11/25/16 08:11 (Ecotrin Ec) 325 mg DAILY PO 11/20/16 17:00 11/25/16 08:11 (Norvasc) 10 mg DAILY PO 11/25/16 09:00 11/25/16 08:10 (Cordarone) 200 mg DAILY PO 11/25/16 09:00 11/25/16 08:11 (SoluMEDROL INJ) 20 mg DAILY IV 11/26/16 09:00 (Morphine Inj) 2 mg Q3H PRN IV PUSH 11/25/16 14:00 11/25/16 13:29 (Ativan Inj) 1 mg Q6H PRN IV PUSH 11/25/16 14:00 Family History Father - of emphysema Mother - of heart disease Brother - of heart disease Son - of cerebral aneurysm Son - of DM complications . Substance Use Tobacco: Former smoker. Alcohol: Social drinker. Wine at times. Prescription med abuse: None reported. Illicits: Reported. . Psychosocial History Patient is retired. Has been to Jacquelin Duff for the past 59 years. They have 2 children together. They are both . Oldest son of cerebral aneurysm and younger son of diabetes complications secondary to non- compliance. Patient very active in the community including volunteering at [facility], he reports over 13,000 volunteering hours provided. Patient served in the [employer] for 21 years, he completed multiple tours in [place] and [place]. 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 . Spiritual/Cultural Factors Mandaeism wale. . Living Will: Copy in medical record Health Care Surrogate: Copy in medical record Durable Power of Rail Layer: Completed, but not made available Date completed: June 23, 2000. . Health Care Surrogate(s): Jacquelin Duff. . Documented care wishes: Living will completed. Patient wishing that his dying not be artificially prolonged in the setting of terminal condition. Wishing to naturally with only the administration of medication or the performance of any medical procedure deemed necessary to provide comfort or alleviate pain. . Today's verbally stated goals: No code. DNR/DNI. Patient electing to transition to comfort directed care with hospice services. . Family/friends goals: Jacquelin further supported of the goals stated above. . Ethical and Legal Issues No ethical legal issues have been identified. . Physical Exam Vital Signs Date Time Temp Pulse Resp B/P Pulse Ox O2 Delivery O2 Flow Rate FiO2 11/25/16 14:00 67 11/25/16 13:00 66 11/25/16 12:00 64 11/25/16 11:00 98.0 65 18 142/74 95 11/25/16 11:00 62 11/25/16 10:00 76 11/25/16 09:00 64 11/25/16 08:00 69 11/25/16 07:26 96 Nasal Cannula 3.00 11/25/16 07:00 57 11/25/16 07:00 98.2 63 20 140/69 97 11/25/16 06:00 55 11/25/16 05:00 53 11/25/16 04:00 97.7 61 18 145/77 96 11/25/16 04:00 51 11/25/16 03:33 97.7 61 18 145/77 96 11/25/16 03:00 51 11/25/16 02:04 51 11/25/16 01:00 58 11/25/16 00:00 52 11/25/16 00:00 97.0 65 18 158/93 95 11/24/16 23:46 97.0 65 17 158/93 95 11/24/16 23:00 53 11/24/16 22:00 54 11/24/16 21:00 54 11/24/16 20:00 97.0 65 20 159/79 94 11/24/16 20:00 62 11/24/16 19:00 67 11/24/16 18:01 62 11/24/16 17:19 98 Nasal Cannula 3.00 11/24/16 17:00 58 11/24/16 16:01 60 11/24/16 16:01 97.9 64 24 114/66 95 11/24/16 15:00 73 11/24/16 11/25/16 19:00 07:00 Intake Total 930 ml 340 ml Output Total 275 ml 500 ml Balance 655 ml -160 ml Intake Oral 480 ml 240 ml IV Total 450 ml 100 ml Output Urine Total 275 ml 500 ml # Bowel Movements 0 Exam CONSTITUTIONAL/GENERAL: This is a thin, elderly man in moderate distress secondary to shortness of breath. TUBES/LINES/DRAINS: PIV's. Nasal cannula. SKIN: No jaundice, rashes, or lesions. Scatter ecchymoses on upper extremities. No wounds seen anteriorly. Skin temperature appropriate. Not diaphoretic. HEAD: Atraumatic. Normocephalic. EYES: Pupils equal and round and reactive. No scleral icterus. No injection or drainage. ENT: Hearing grossly normal. Nose without bleeding or purulent drainage. NECK: Trachea midline. Supple, nontender. CARDIOVASCULAR: Irregular rate and rhythm. Peripheral pulses symmetric. RESPIRATORY/CHEST: Tachypnea. Symmetric, increased work of breathing. Regular , shallow respirations. Coarse breath sounds bilaterally. O2 via nasal cannula. Limited speech secondary to dyspnea. GASTROINTESTINAL: Abdomen soft, non-tender, round, large. No guarding. Bowel sounds present. GENITOURINARY: Without palpable bladder distension. Using urinal without difficulty. MUSCULOSKELETAL: Extremities without clubbing, cyanosis, or edema. NEUROLOGICAL: Awake and alert. Follows commands. Cognitively sharp. Moves all extremities. PSYCHIATRIC: No obvious anxiety/depression. Calm. Pleasant and cooperative. . Diagnostic Tests Laboratory Laboratory Tests Test 11/24/16 11/25/16 06:01 05:37 White Blood Count 7.5 TH/MM3 7.8 TH/MM3 (4.0-11.0) (4.0-11.0) Red Blood Count 4.03 MIL/MM3 3.81 MIL/MM3 (4.50-5.90) (4.50-5.90) Hemoglobin 10.8 GM/DL 10.5 GM/DL (13.0-17.0) (13.0-17.0) Hematocrit 33.8 % 31.5 % (39.0-51.0) (39.0-51.0) Mean Corpuscular Volume 83.9 FL 82.8 FL (80.0-100.0) (80.0-100.0) Mean Corpuscular Hemoglobin 26.8 PG 27.7 PG (27.0-34.0) (27.0-34.0) Mean Corpuscular Hemoglobin 31.9 % 33.4 % Concent (32.0-36.0) (32.0-36.0) Red Cell Distribution Width 16.4 % 16.0 % (11.6-17.2) (11.6-17.2) Platelet Count 196 TH/MM3 192 TH/MM3 (150-450) (150-450) Mean Platelet Volume 8.5 FL 8.6 FL (7.0-11.0) (7.0-11.0) Neutrophils (%) (Auto) 92.7 % 80.3 % (16.0-70.0) (16.0-70.0) Lymphocytes (%) (Auto) 1.7 % 6.0 % (9.0-44.0) (9.0-44.0) Monocytes (%) (Auto) 5.5 % (0.0-8.0) 12.2 % (0.0-8.0) Eosinophils (%) (Auto) 0.0 % (0.0-4.0) 1.5 % (0.0-4.0) Basophils (%) (Auto) 0.1 % (0.0-2.0) 0.0 % (0.0-2.0) Neutrophils # (Auto) 7.0 TH/MM3 6.2 TH/MM3 (1.8-7.7) (1.8-7.7) Lymphocytes # (Auto) 0.1 TH/MM3 0.5 TH/MM3 (1.0-4.8) (1.0-4.8) Monocytes # (Auto) 0.4 TH/MM3 0.9 TH/MM3 (0-0.9) (0-0.9) Eosinophils # (Auto) 0.0 TH/MM3 0.1 TH/MM3 (0-0.4) (0-0.4) Basophils # (Auto) 0.0 TH/MM3 0.0 TH/MM3 (0-0.2) (0-0.2) CBC Comment DIFF FINAL DIFF FINAL Differential Comment Sodium Level 140 MEQ/L 139 MEQ/L (136-145) (136-145) Potassium Level 4.6 MEQ/L 4.1 MEQ/L (3.5-5.1) (3.5-5.1) Chloride Level 103 MEQ/L 103 MEQ/L (98-107) (98-107) Carbon Dioxide Level 31.1 MEQ/L 30.6 MEQ/L (21.0-32.0) (21.0-32.0) Anion Gap 6 MEQ/L (5-15) 5 MEQ/L (5-15) Blood Urea Nitrogen 26 MG/DL (7-18) 22 MG/DL (7-18) Creatinine 0.76 MG/DL 0.64 MG/DL (0.60-1.30) (0.60-1.30) Estimat Glomerular Filtration 98 ML/MIN (>89) 120 ML/MIN Rate (>89) Random Glucose 104 MG/DL 73 MG/DL (74-106) (74-106) Calcium Level 7.7 MG/DL 7.6 MG/DL (8.5-10.1) (8.5-10.1) Result Diagram: 11/25/16 0537 11/25/16 0537 Imaging Last 48 hours Impressions Chest X-Ray 11/24/16 0000 Signed Impressions: Service Date/Time: Thursday, November 24, 2016 09:03 - CONCLUSION: 1. Bibasilar densities greater in the left lower lobe likely infiltrates. 2. Small left pleural effusion. Mark Naik MD Patient/Family Conference Present at Family Conference: Stephie Roper Family Conference Time (mins): 36 Family Conference Location: Bedside Issues Discussed: * Palliative care role, purpose, approach * Additional medical, psychosocial, and spiritual history * Patients general health, functional status, and cognitive changes in the months leading up to the current hospitalization * Patient/family understanding of the current medical problems * Patient/family understanding of prognosis * Patients goals of care as best understood from advance directives and/or conversations and/or values * Current medical treatment options and benefits/burdens of those options * Likely scenarios comparing ongoing aggressive care with a transition to comfort measures only * Questions answered to the best of my ability * Palliative care contact information provided * Hospice philosophy and benefits . Assessment and Plan Disease Oriented Problem List: (1) COPD with acute exacerbation (2) Respiratory failure (3) Sepsis (4) PNA (pneumonia) (5) Paroxysmal atrial fibrillation Symptom Scale: (1) Shortness of breath 0-10 Scale: 9 Comment: Profound at rest and on any exertion. (2) Debility 0-10 Scale: Unable to quantify Comment: Secondary to physical deconditioning. Pertinent Non-Medical Issues Psychosocial: , had 2 children but are now . 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 Spiritual: Mandaeism wale. Legal: Living will completed. Ethical issues impacting care: No ethical issues have been identified. . Important Contacts Stephie Duff [phone] or [phone]. Prognosis Mr. Duff is an 81-year-old male with a medical history of COPD, O2 dependent, atrial fibrillation, anxiety, CAD, dyslipidemia, hypertension, nephrolithiasis. Patient presented to the emergency room via EMS on 11/16/16 reporting increase shortness of breath. Patient was placed on BiPAP and admitted for acute COPD exacerbation. Patient with long history of persistent COPD exacerbations and multiple infections. Now with profound physical deconditioning. Patient has elected comfort directed care with hospice services given his poor prognosis for an improved quality of life. Patient's prognosis is poor with life expectancy of days to weeks if illness runs its natural course. . Code Status: No Code Plan * CODE STATUS: No code. DNR/DNI. * HEALTHCARE DECISION-MAKER: Patient making healthcare decisions at this time. Living well and designation of healthcare surrogate completed. Jacquelin Duff as healthcare surrogate decision maker. * GOALS OF CARE: DNR/DNI. Patient elected to transition to comfort-directed care with hospice services given his overall poor prognosis in the setting of his advanced age, profound physical deconditioning, multiple COPD exacerbations , increased symptoms burden and multiple comorbidities. Goal of treatment is for symptom management/improved quality of life and allow natural . Patient wishing to be transferred to hospice care center for symptom management and end-of-life care. Jacquelin fully supportive of patient's decision. * HOSPICE: Patient appears appropriate and eligible for hospice benefits under [facility] guidelines for COPD as evidence by O2 dependent, disabling dyspnea at rest, acute care admissions secondary to COPD, progressive pulmonary disease and profound physical deconditioning. Patient electing [facility]. Referral has been made. * SYMPTOMS: == Shortness of breath, worsening. Profound dyspnea at rest and on minimal exertion. O2 dependent. Receiving Solu-Medrol daily. Morphine 2 mg IV every 3 hours when necessary and Ativan 1 mg every 6 hours when necessary available as needed. Has received 1 dose of morphine for good effect. No further recommendations. == Debility, profound physical deconditioning secondary to acute illness and hospitalization. Declining rehabilitation. * Case has been discussed with manager labor delivery -Maxime * Palliative care contact information has been provided to patient and . * Palliative care will continue to follow-up as needed. . Time Spent Total Floor Time (mins): 88 (Total care to include review and summarization of available medical records including prior hospitalization, physical exam, his of care discussion with patient and , and case discussion with manager labor delivery.) >50% Counseling/Coord of Care: Yes Thank you for the opportunity to participate in the care of Mr. Duff. Attestation To help prompt me to consider important information that might be impacting today's encounter and assessment, information from prior notes written by myself or my colleagues may have been "brought forward" into today's note. My signature on this note, however, is an attestation that I personally performed the exam, history, and/or decision-making noted today, and, unless otherwise indicated, the interactions with patient, family, and staff as well as the review of records all occurred today. I also attest that the listed assessment and stated plan reflect my best clinical judgment today based on the combination of historical information, prior notes, and today's exam/ interactions. When time spent is documented, it refers only to time spent today by the signer, or if indicated, combined time spent today by collaborating physician/nurse practitioner. Katerine Wiggins Nov 25, 2016 15:11
[2016-11-26] MEDS ORDERED: methylPREDNISolone SOD SUCC 40 MG/1 ML VIAL IV SCH (09:00)
--- NOTE | 2016-11-29 09:25 | PQ ---
Physician Query Response Document PATIENT: SEVERIANO LOVE : 1935 ADMIT DATE: 11/16/2016 12:39 PM DISCH DATE: 11/25/2016 6:30 PM RESPONDING PROVIDER #: Karolyn QUERY TEXT: Clinical Significance The diagnosis documented below requires documentation to state the clinical significance: LACTIC ACIDOSIS Please respond and also state in your next progress note whether the condition is: -- Clinically insignificant -- Clinically significant, and please also state why it is clinically significant -- Unable to determine clinical significance -- Other, please specify The patient's Clinical Indicators include: PER PROGRESS NOTE 11/25/16: Assessment and Plan: (5) Elevated lactic acid level LACTIC ACID=2.2 ON 11/16/16 LACTIC ACID=3.2 ON 11/17/16 Query created by: Raegan Wilson on 11/25/2016 4:03 PM RESPONSE TEXT: LACTIC ACIDOSIS, CLINICALLY SIGNIFICANT, DUE TO PNEUMONIA Electronically signed by: Estiven Toth MD 11/29/2016 9:22 AM
--- NOTE | 2017-01-09 20:42 | MD ---
cc: ESTIVEN ROSENBAUM ADMISSION DATE: 11/16/2016 DISCHARGE DATE: 11/25/2016 CONSULTATIONS Cardiology, Dr. Mackey. Palliative care. Infectious disease, Dr. Avendaño. PROCEDURES None. ADMISSION DIAGNOSIS Respiratory failure. DISCHARGE DIAGNOSIS 1. Sepsis. 2. Acute on chronic respiratory failure. 3. COPD exacerbation. 4. Pneumonia. 5. Elevated lactic acid level. 6. Hypertension. 7. BPH. 8. Atrial fibrillation. HOSPITAL COURSE Nico Duff is an unfortunate 81-year-old male who was admitted with respiratory failure. He was found to have sepsis due to pneumonia. He is treated for COPD initially in the intensive unit. Blood culture showed gram-positive cocci and subsequent sputum showed Pseudomonas. He was given IV antibiotics and used his home ___. He maintained on IV steroids per Dr. Hernandez. And he was found to have atrial fibrillation and given amiodarone and aspirin. He subsequently was discharged for palliation. MED RECONCILIATION Meds per palliative care team. Discharge condition Unstable. He was going to Hospice. Estiven Rosenbaum MD RP/TIMOTEO /3:51 PM /8:37 PM
== END 2016-11-25 18:30 | disposition hospice, inpatient (51) | DRG 871 ==
LOC: NEPA 10:03 → NEDA 12:39 → HIME 15:00 → N04A 11-19 13:32 → HCIN 11-20 13:06
PROVIDERS: ADMIT Family Medicine; ATTEND Family Medicine
PROC: 5A09357 Assistance with Respiratory Ventilation, Less than 24 Consecutive Hours, Continuous Positive Airway Pressure (ICD-10-PCS; principal; 2016-11-16)
DX: A41.89 Other specified sepsis (principal); J96.21 Acute and chronic respiratory failure with hypoxia; J18.9 Pneumonia, unspecified organism; E87.2 Acidosis; J44.1 Chronic obstructive pulmonary disease with (acute) exacerbation; Z99.81 Dependence on supplemental oxygen; I25.82 Chronic total occlusion of coronary artery; I48.0 Paroxysmal atrial fibrillation; I25.10 Atherosclerotic heart disease of native coronary artery without angina pectoris; I10 Essential (primary) hypertension; E78.5 Hyperlipidemia, unspecified; F41.9 Anxiety disorder, unspecified; E78.00 Pure hypercholesterolemia, unspecified; J45.909 Unspecified asthma, uncomplicated; I73.9 Peripheral vascular disease, unspecified; Z88.5 Allergy status to narcotic agent; Z88.8 Allergy status to other drugs, medicaments and biological substances; Z88.1 Allergy status to other antibiotic agents; Z91.040 Latex allergy status; Z86.79 Personal history of other diseases of the circulatory system; Z87.442 Personal history of urinary calculi; Z87.891 Personal history of nicotine dependence; Z51.5 Encounter for palliative care; Z83.3 Family history of diabetes mellitus; Z82.49 Family history of ischemic heart disease and other diseases of the circulatory system; Z66 Do not resuscitate; N40.0 Benign prostatic hyperplasia without lower urinary tract symptoms
CPT/HCPCS: 36600; 71010; 80048; 80053; 80069; 81001; 82550; 82805; 83605; 83735; 83880; 84100; 84155; 84484; 85025; 85610; 85730; 87040; 87070; 87077; 87186; 87205; 87449; 87641; 87804; 93005; 94002; 94003; 94640; 94664; 96374; C9113; J0282; J0456; J0610; J0692; J0696; J1160; J1644; J2060; J2185; J2270; J2920; J2930; J7030; J7050; J7060; J7644

== ENCOUNTER → 2017-08-09 | Outpatient (CLI) | payer OTHER | LOC: CLAB 07:16 | PROVIDERS: ATTEND Internal Medicine | DX: J44.1 Chronic obstructive pulmonary disease with (acute) exacerbation (principal); J96.90 Respiratory failure, unspecified, unspecified whether with hypoxia or hypercapnia; J18.9 Pneumonia, unspecified organism; J40 Bronchitis, not specified as acute or chronic | CPT/HCPCS: 87205 ==

== ENCOUNTER → 2017-08-10 | Outpatient (CLI) | payer OTHER | LOC: CLAB 07:34 | PROVIDERS: ATTEND Internal Medicine | DX: J40 Bronchitis, not specified as acute or chronic (principal); J44.1 Chronic obstructive pulmonary disease with (acute) exacerbation; J18.9 Pneumonia, unspecified organism; J96.90 Respiratory failure, unspecified, unspecified whether with hypoxia or hypercapnia; B96.5 Pseudomonas (aeruginosa) (mallei) (pseudomallei) as the cause of diseases classified elsewhere | CPT/HCPCS: 87070; 87077; 87186; 87205 ==